=== PATIENT | male | born 1950 | race Caucasian/White ===

== ENCOUNTER → 2016-06-12 | Day surgery (SDC) | payer OTHER ==
[~2016-06-12] MED LIST: Buffered Lidocaine 1% SYR 3ML* 3 ML/SYR SYRINGE INTRADERM ONE; Buffered Lidocaine 1% SYR 3ML* 3 ML/SYR SYRINGE ONE; Dexamethasone IV* 4 MG/ML 1 ML (4 MG) ONE; Famotidine IV* 10 MG/ML 2 ML (20 mg) IV ONE; Famotidine IV* 10 MG/ML 2 ML (20 mg) ONE; Lidocaine 2% PF * 5 ML VIAL ONE; Metoclopramide TAB* 10 MG ONE; Metoclopramide TAB* 10 MG PO ONE; Midazolam* 1 MG/ML 5 ML VIAL (5 MG) ONE; Ondansetron INJ* 2 MG/ML VIAL IV PRN; Ondansetron INJ* 2 MG/ML VIAL ONE; Propofol* 10 MG/ML 20 ML BTL IV PUSH ONE; ceFAZolin 2 GM PREMIX (*) 2 GM/50 ML BAG IVPB ONE; fentaNYL* 50 MCG/ML 2 ML VIAL (100 MCG VIAL) IV PRN; fentaNYL* 50 MCG/ML 2 ML VIAL (100 MCG VIAL) ONE; oxyCODONE/Acetamin 5/325 MG* TAB PO PRN
[2016-06-12 14:07] VITALS: BP 118/72
== END | disposition home or self-care (01) ==
LOC: OREAST 09:32
PROVIDERS: ATTEND Plastic Surgery
DX: G56.01 Carpal tunnel syndrome, right upper limb (principal); M19.90 Unspecified osteoarthritis, unspecified site
CPT/HCPCS: A9270-GY; J0690; J1100; J2250; J2405; J2704; J3010

== ENCOUNTER 2016-07-02 15:56 | Emergency (ER) | payer OTHER ==
[2016-07-02] MEDS ORDERED: Aspirin Low Dose CHEW TAB* 81 MG PO ONE (17:38)
[2016-07-02 17:59] LABS: Hematocrit 46 % (42-52); Hemoglobin 15.7 g/dl (14.0-18.0); Mean Corpuscular HGB Conc 34 g/dl (31-36); Mean Corpuscular Hemoglobin 31 pg (27-31); Mean Corpuscular Volume 91 fL (80-94); Mean Platelet Volume 11 um3 (7.4-10.4); Red Blood Count 5.02 10^6/ul (4.0-5.4); Red Cell Distribution Width 14 % (10.5-15); White Blood Count 6.9 10^3/ul (3.5-10.8)
[2016-07-02 18:12] LABS: Albumin 4.3 g/dL (3.2-5.2); BUN/Creatinine Ratio 19.6 (8-20); Calcium 9.4 mg/dL (8.6-10.3); EGFR African American 106.5 (>60); EGFR Non-African American 82.8 (>60); Globulin 2.6 g/dL (2-4); Magnesium 2.1 mg/dL (1.9-2.7); Total Bilirubin 0.4 mg/dL (0.2-1.0); Total Protein 6.9 g/dL (6.4-8.9)
[2016-07-02 18:14] LABS: Troponin I 0.01 ng/mL (<0.04)
[2016-07-02 18:24] LABS: TSH (Thyroid Stimulating Horm) 1.54 mcIU/mL (0.34-5.60)
--- NOTE | 2016-07-02 18:28 | RAD ---
INDICATION: Chest pain. COMPARISON: Comparison is made with a prior chest x-ray study from October 14, 2005. TECHNIQUE: A portable view of the chest was obtained. FINDINGS: Cardiac and mediastinal contours appear to be within normal limits. The lungs are clear. No pleural effusion is seen. IMPRESSION: NO EVIDENCE FOR ACUTE DISEASE.
[2016-07-02 21:12] VITALS: BP 111/69
--- NOTE | 2016-07-02 21:18 | ED ---
Jorge Camp Billy, scribed for Brooks Sheth MD on 07/02/16 at 1732 . HPI Chest Pain - HPI Summary HPI Summary: Patient is a 66 year-old male coming to [facility] for evaluation of left anterior, non-radiating chest pain starting suddenly at 0300 this morning, waking him up from sleep. The pain spontaneously resolved after 1 hour. He denies any nausea, vomiting, diaphoresis, SOB, or dizziness at that time. However, pain was worse when actively leaning forward. He states he is asymptomatic at this time in the ED. - History of Current Complaint Chief Complaint: EDChestPainROMI Time Seen by Provider: 07/02/16 17:29 Hx Obtained From: Patient Onset/Duration: Started Hours Ago, Still Present Time of Onset: 03:00 Initial Severity: Moderate Current Severity: None Chest Pain Location: Left Anterior Chest Pain Radiates: No Aggravating Factor(s): Position Alleviating Factor(s): Nothing Associated Signs and Symptoms: Positive: Chest Pain. Negative: Dizziness, Shortness of Breath, Diaphoresis, Nausea, Vomiting - Additional Pertinent History Primary Care Physician: [id number] - Allergy/Home Medications Allergies/Adverse Reactions: Allergies Allergy/AdvReac Type Severity Reaction Status Date / Time ENVIRONMENTAL Allergy Congestion, Uncoded 06/12/16 10:24 CHRONIC COUGH PMH/Surg Hx/FS Hx/Imm Hx Endocrine/Hematology History: Denies: Hx Diabetes Cardiovascular History: Denies: Hx Hypertension Respiratory History: Reports: Other Respiratory Problems/Disorders - CONGESTION IN AM GI History: Reports: Hx Irritable Bowel - DAILY FIBER LAXATIVE History: Reports: Other Problems/Disorders - SLIGHTLY ENLARGE PROSTATE Musculoskeletal History: Reports: Hx Arthritis - OSTEOARTHRITIS BILATERAL KNEES ; LEFT TKR Sensory History: Reports: Hx Cataracts - BILAT, Hx Contacts or Glasses - GLASSES Denies: Hx Hearing Aid Opthamlomology History: Reports: Hx Cataracts - BILAT, Hx Contacts or Glasses - GLASSES Neurological History: Reports: Other Neuro Impairments/Disorders - HX OF DIZZINESS AFTER KNEE SURGERY - NONE NOW Psychiatric History: Reports: Hx Anxiety, Hx Depression - Surgical History Surgery Procedure, Year, and Place: 1996 NASAL SURGERY, [facility] [place]. 1998 UMBILICAL HERNIA REPAIR, [facility] [place]. 2013 BILATERAL CATARACT EXTRACTION WITH IOL IMPLANTS, [facility] [place]. 10/2015 LEFT TOTAL KNEE REPLACEMENT, [facility] [place]. 05/26/2016 ANAL POLYP EXCISION, [facility] Hx Anesthesia Reactions: No Infectious Disease History: No Infectious Disease History: Denies: Traveled Outside the [place] in Last 30 Days - Family History Known Family History: Negative: Cardiac Disease, Hypertension, Diabetes - Social History Alcohol Use: Rare Alcohol Amount: 1-2 X MONTH Substance Use Type: Reports: None Smoking Status (MU): Never Smoked Tobacco Review of Systems Negative: Skin Diaphoresis Positive: Chest Pain Negative: Shortness Of Breath Negative: Vomiting, Nausea All Other Systems Reviewed And Are Negative: Yes Physical Exam - Summary Physical Exam Summary: VITAL SIGNS: Reviewed. GENERAL: Patient is a well developed and nourished male who is lying comfortable in the stretcher. Patient is not in any acute respiratory distress. HEAD AND FACE: No signs of trauma. No ecchymosis, hematomas or skull depressions. No sinus tenderness. EYES: PERRLA, EOMI x 2, No injected conjunctiva, no nystagmus. EARS: Hearing grossly intact. Ear canals and tympanic membranes are within normal limits. MOUTH: Oropharynx within normal limits. NECK: Supple, trachea is midline, no adenopathy, no JVD, no carotid bruit, no c- spine tenderness, neck with full ROM. CHEST: Symmetric, no tenderness at palpation LUNGS: Clear to auscultation bilaterally. No wheezing or crackles. CVS: Regular rate and rhythm, S1 and S2 present, no murmurs or gallops appreciated. ABDOMEN: Soft, non-tender. No signs of distention. No rebound no guarding, and no masses palpated. Bowel sounds are normal. EXTREMITIES: FROM in all major joints, no edema, no cyanosis or clubbing. NEURO: Alert and oriented x 3. No acute neurological deficits. Speech is normal and follows commands. SKIN: Dry and warm Triage Information Reviewed: Yes Vital Signs On Initial Exam: Initial Vitals Temp Pulse Resp BP Pulse Ox 98.9 F 100 16 161/84 97 07/02/16 15:58 07/02/16 15:58 07/02/16 15:58 07/02/16 15:58 07/02/16 15:58 Vital Signs Reviewed: Yes Diagnostics - Vital Signs Vital Signs Temp Pulse Resp BP Pulse Ox 07/02/16 16:56 99.4 F 93 16 136/77 97 07/02/16 15:58 98.9 F 100 16 161/84 97 - Laboratory Lab Results: Lab Results 07/02/16 07/02/16 07/02/16 Range/Units 17:26 17:26 17:26 WBC 6.9 (3.5-10.8) 10^3/ul RBC 5.02 (4.0-5.4) 10^6/ul Hgb 15.7 (14.0-18.0) g/dl Hct 46 (42-52) % MCV 91 (80-94) fL MCH 31 (27-31) pg MCHC 34 (31-36) g/dl RDW 14 (10.5-15) % Plt Count 178 (150-450) 10^3/ul MPV 11 H (7.4-10.4) um3 Neut % (Auto) 70.0 (38-83) % Lymph % (Auto) 18.7 L (25-47) % [place] % (Auto) 8.2 (1-9) % Eos % (Auto) 2.4 (0-6) % Baso % (Auto) 0.7 (0-2) % Absolute Neuts (auto) 4.9 (1.5-7.7) 10^3/ul Absolute Lymphs (auto) 1.3 (1.0-4.8) 10^3/ul Absolute Monos (auto) 0.6 (0-0.8) 10^3/ul Absolute Eos (auto) 0.2 (0-0.6) 10^3/ul Absolute Basos (auto) 0 (0-0.2) 10^3/ul Absolute Nucleated RBC 0.01 10^3/ul Nucleated RBC % 0.1 Sodium 138 (133-145) mmol/L Potassium 4.0 (3.5-5.0) mmol/L Chloride 107 (101-111) mmol/L Carbon Dioxide 25 (22-32) mmol/L Anion Gap 6 (2-11) mmol/L BUN 18 (6-24) mg/dL Creatinine 0.92 (0.67-1.17) mg/dL Est GFR ( Amer) 106.5 (>60) Est GFR (Non-Af Amer) 82.8 (>60) BUN/Creatinine Ratio 19.6 (8-20) Glucose 88 (70-100) mg/dL Lactic Acid 0.6 (0.5-2.0) mmol/L Calcium 9.4 (8.6-10.3) mg/dL Magnesium 2.1 (1.9-2.7) mg/dL Total Bilirubin 0.40 (0.2-1.0) mg/dL AST 21 (13-39) U/L ALT 19 (7-52) U/L Alkaline Phosphatase 67 (34-104) U/L Total Creatine Kinase 56 (10-223) U/L CK-MB (CK-2) 2.4 (0.6-6.3) ng/mL Troponin I 0.01 (<0.04) ng/mL B-Natriuretic Peptide ( - 100) pg/mL Total Protein 6.9 (6.4-8.9) g/dL Albumin 4.3 (3.2-5.2) g/dL Globulin 2.6 (2-4) g/dL Albumin/Globulin Ratio 1.7 (1-3) TSH 1.54 (0.34-5.60) mcIU/mL 07/02/16 Range/Units 17:26 WBC (3.5-10.8) 10^3/ul RBC (4.0-5.4) 10^6/ul Hgb (14.0-18.0) g/dl Hct (42-52) % MCV (80-94) fL MCH (27-31) pg MCHC (31-36) g/dl RDW (10.5-15) % Plt Count (150-450) 10^3/ul MPV (7.4-10.4) um3 Neut % (Auto) (38-83) % Lymph % (Auto) (25-47) % [place] % (Auto) (1-9) % Eos % (Auto) (0-6) % Baso % (Auto) (0-2) % Absolute Neuts (auto) (1.5-7.7) 10^3/ul Absolute Lymphs (auto) (1.0-4.8) 10^3/ul Absolute Monos (auto) (0-0.8) 10^3/ul Absolute Eos (auto) (0-0.6) 10^3/ul Absolute Basos (auto) (0-0.2) 10^3/ul Absolute Nucleated RBC 10^3/ul Nucleated RBC % Sodium (133-145) mmol/L Potassium (3.5-5.0) mmol/L Chloride (101-111) mmol/L Carbon Dioxide (22-32) mmol/L Anion Gap (2-11) mmol/L BUN (6-24) mg/dL Creatinine (0.67-1.17) mg/dL Est GFR ( Amer) (>60) Est GFR (Non-Af Amer) (>60) BUN/Creatinine Ratio (8-20) Glucose (70-100) mg/dL Lactic Acid (0.5-2.0) mmol/L Calcium (8.6-10.3) mg/dL Magnesium (1.9-2.7) mg/dL Total Bilirubin (0.2-1.0) mg/dL AST (13-39) U/L ALT (7-52) U/L Alkaline Phosphatase (34-104) U/L Total Creatine Kinase (10-223) U/L CK-MB (CK-2) (0.6-6.3) ng/mL Troponin I (<0.04) ng/mL B-Natriuretic Peptide 21 ( - 100) pg/mL Total Protein (6.4-8.9) g/dL Albumin (3.2-5.2) g/dL Globulin (2-4) g/dL Albumin/Globulin Ratio (1-3) TSH (0.34-5.60) mcIU/mL Result Diagrams: 07/02/16 17:26 07/02/16 17:26 Lab Statement: Any lab studies that have been ordered have been reviewed, and results considered in the medical decision making process. - Radiology CXR Xray Interpretation: No Acute Changes Radiology Interpretation Completed By: Radiologist - EKG 1604 EKG Interpretation: NSR 90 bpm, no ST elevation Chest Pain Course/Dx - Course Assessment/Plan: Patient is a 66 year-old male coming to [facility] for evaluation of left anterior, non-radiating chest pain starting suddenly at 0300 this morning, waking him up from sleep. The pain spontaneously resolved after 1 hour. He denies any nausea, vomiting, diaphoresis, SOB, or dizziness at that time. However, pain was worse when actively leaning forward. He states he is asymptomatic at this time in the ED. Bloodwork WNL. Trop #1 is 0.01, trop #2 is 0.00. EKG shows no ST elevations. CXR shows no evidence for acute disease. In the ER course, the patient continues to be asypmtomatic, therefore I discussed my physical exam findings with the patient and the need to follow up with PCP. Because the patient has no significant comorbidities and no family history of cardiovascular disease the patient will be discharged home with follow up of PMD. I discussed all the findings and test results with the patient. Patient was instructed to return to the emergency room immediately if any of the symptoms return or worsens. Patient understands and agrees. Plan of care was discussed with the patient and patient understands and agrees. All questions were answered at patient satisfaction. There were no further complaints or concerns. PE before discharge: CVS: S1 and S2 present. No murmurs appreciated. Abdominal exam before discharge: Soft, non-tender. No signs of distention. No rebound no guarding, and no masses palpated. Bowel sounds are normal. Patient is alert and oriented x 3. Patient is hemodynamically stable. - Chest Pain Differential Diagnosis/HQI/PQRI: ACS, Angina, CHF, Chest Wall, GI Disease, Lower Respiratory Infection - Diagnoses Provider Diagnoses: Chest pain Discharge - Discharge Plan Condition: Stable Disposition: HOME Patient Education Materials: Chest Pain (ED) Referrals: Isis Chacon MD [Primary Care Provider] - The documentation as recorded by the Jorge cardenas Billy accurately reflects the service I personally performed and the decisions made by me, Brooks Sheth MD.
== END 2016-07-02 21:27 | disposition home or self-care (01) ==
LOC: ED 15:56
DX: R07.89 Other chest pain (principal)
CPT/HCPCS: 36415; 71010; 80053; 82550; 82553; 83605; 83735; 83880; 84443; 84484; 85025; 93005; 99283; A9270-GY

== ENCOUNTER → 2016-09-04 10:15 | Day surgery (SDC) | payer OTHER ==
[~2016-09-04 10:15] MED LIST changes: +Acetaminophen TAB* 325 MG ONE; -Buffered Lidocaine 1% SYR 3ML* 3 ML/SYR SYRINGE INTRADERM ONE; -Buffered Lidocaine 1% SYR 3ML* 3 ML/SYR SYRINGE ONE; +Buffered Lidocaine 1% SYRIN* 3 ML/SYR SYRINGE INTRADERM ONE; +Bupivacaine 0.25% SDV* 30 ML ONE; -Dexamethasone IV* 4 MG/ML 1 ML (4 MG) ONE; -Famotidine IV* 10 MG/ML 2 ML (20 mg) IV ONE; -Famotidine IV* 10 MG/ML 2 ML (20 mg) ONE; -Lidocaine 2% PF * 5 ML VIAL ONE; -Metoclopramide TAB* 10 MG ONE; -Metoclopramide TAB* 10 MG PO ONE; +Midazolam* 1 MG/ML 2 ML VIAL (2 MG) ONE; -Midazolam* 1 MG/ML 5 ML VIAL (5 MG) ONE; -Ondansetron INJ* 2 MG/ML VIAL IV PRN; -Ondansetron INJ* 2 MG/ML VIAL ONE; -ceFAZolin 2 GM PREMIX (*) 2 GM/50 ML BAG IVPB ONE; +ceFAZolin 2 GM PREMIX(*) 2 GM/50 ML BAG IVPB ONE; -fentaNYL* 50 MCG/ML 2 ML VIAL (100 MCG VIAL) IV PRN; -oxyCODONE/Acetamin 5/325 MG* TAB PO PRN
[2016-09-04 16:00] VITALS: BP 138/87
== END | disposition home or self-care (01) ==
LOC: OREAST 10:15
PROVIDERS: ATTEND Plastic Surgery
DX: G56.02 Carpal tunnel syndrome, left upper limb (principal); M19.90 Unspecified osteoarthritis, unspecified site; K21.9 Gastro-esophageal reflux disease without esophagitis; K58.9 Irritable bowel syndrome, unspecified
CPT/HCPCS: A9270-GY; J0690; J2250; J2704; J3010

== ENCOUNTER 2017-04-07 10:46 | Inpatient (IN) | payer OTHER ==
--- NOTE | 2017-03-26 19:30 | HP ---
HISTORY AND PHYSICAL: DATE OF ADMISSION/SURGERY: 04/07/17 DATE OF OFFICE VISIT: 03/25/17 SURGEON: Alfreda Moreno MD* (dictated by ELVIE Cuevas). PROCEDURE: Right total hip arthroplasty. CHIEF COMPLAINT: Right hip pain. HISTORY OF PRESENT ILLNESS: Mr. De Oliveira is a 66-year-old gentleman with complaints of right hip pain secondary to advanced osteoarthritis. He has failed conservative management and has elected to proceed with a right total hip arthroplasty, which is scheduled for 04/07/[address] Moreno. PAST MEDICAL HISTORY: BPH, GERD, and sleep apnea. PAST SURGICAL HISTORY: Left total knee arthroplasty, bilateral carpal tunnel release, tooth extraction, and anal polyp removal. CURRENT MEDICATIONS: 1. Daily multivitamin. 2. Milk of magnesia. 3. Fish oil. 4. Methylcellulose. 5. Glucosamine/chondroitin. 6. Tylenol Extra Strength. 7. Celebrex 100 mg twice daily. ALLERGIES: No known drug allergies. FAMILY HISTORY: Denies. SOCIAL HISTORY: He is a 66-year-old gentleman. Denies use of tobacco or illicit drugs. REVIEW OF SYSTEMS: A complete 14-point review of systems was reviewed with the patient; it was all negative or noncontributory. PHYSICAL EXAMINATION GENERAL: He is well-developed, well-nourished, in no acute distress. VITAL SIGNS: He stands 5 feet 6 inches tall, weighs 200 pounds, his blood pressure is 138/92, his heart rate is 80. HEENT: Normocephalic, atraumatic. NECK: Supple. No palpable lymph nodes. PULMONARY: Lungs are clear to auscultation bilaterally. CARDIO: Regular rate and rhythm. Strong S1, S2. ABDOMEN: Soft, nontender, and nondistended. NEUROLOGICAL: Alert and oriented x3. Cranial nerves II through XII are intact. MUSCULOSKELETAL: Right lower extremity, the skin is intact. There are no open wounds or abrasions. He walks with an antalgic-type gait favoring his right hip. He has decreased internal and external rotation of his right hip. He has 2 + dorsalis pedis pulse, has intact sensation. His lower extremity muscle group strengths are intact at 5/5. ASSESSMENT AND PLAN: Mr. De Oliveira is a 66-year-old gentleman with complaints of right hip pain secondary to advanced osteoarthritis. He has failed conservative management and has elected to proceed with a right total hip arthroplasty, which is scheduled for 04/07/[address] Moreno discussed the risks and benefits of the surgery and all of his questions were answered. Coumadin, Colace, and Percocet were sent to his pharmacy for postoperative pain control and DVT prophylaxis. He will see with Dr. Moreno back in 2 weeks after the surgery. ELVIE CUEVAS [id number]/[facility] #: [id number] MTDShayan
[~2017-04-07 10:46] MED LIST changes: -Acetaminophen TAB* 325 MG ONE; +Buffered Lidocaine 0.9% SYRIN* 5 ML/SYR SYRINGE INTRADERM ONE; -Buffered Lidocaine 1% SYRIN* 3 ML/SYR SYRINGE INTRADERM ONE; -Bupivacaine 0.25% SDV* 30 ML ONE; +Dexamethasone TAB* 4 MG PO ONE; +Famotidine IV* 10 MG/ML 2 ML (20 mg) IV ONE; -Midazolam* 1 MG/ML 2 ML VIAL (2 MG) ONE; -Propofol* 10 MG/ML 20 ML BTL IV PUSH ONE; -ceFAZolin 2 GM PREMIX(*) 2 GM/50 ML BAG IVPB ONE; -fentaNYL* 50 MCG/ML 2 ML VIAL (100 MCG VIAL) ONE
[2017-04-07] MEDS ORDERED: Dexamethasone TAB* 4 MG ONE (10:53)
[2017-04-07] MEDS ORDERED: Famotidine IV* 10 MG/ML 2 ML (20 mg) ONE (10:53)
[2017-04-07] MEDS ORDERED: ceFAZolin 2 GM PREMIX (*) 2 GM/50 ML BAG IVPB ONE (10:54)
[2017-04-07] MEDS ORDERED: Buffered Lidocaine 0.9% SYRIN* 5 ML/SYR SYRINGE ONE (10:54)
[2017-04-07] MEDS ORDERED: Midazolam* 1 MG/ML 5 ML VIAL (5 MG) ONE ×2 (13:39→15:42)
[2017-04-07] MEDS ORDERED: Propofol* 10 MG/ML 20 ML BTL IV PUSH ONE (13:39)
[2017-04-07] MEDS ORDERED: Ondansetron INJ* 2 MG/ML VIAL ONE (13:39)
[2017-04-07] MEDS ORDERED: Bupivacaine 0.5% SDV PF* 30 ML VIAL ONE (13:39)
[2017-04-07] MEDS ORDERED: Morphine PF AMP (0.5MG/ML)* 5 MG/10 ML AMP ONE (13:40)
[2017-04-07] MEDS ORDERED: KETAMINE HCL* 50 MG/ML 10 ML VIAL ONE (13:40)
[2017-04-07] MEDS ORDERED: Bisacodyl SUPP* 10 MG SUPP PR PRN (15:50)
[2017-04-07] MEDS ORDERED: Acetaminophen TAB* 325 MG PO PRN (15:50)
[2017-04-07] MEDS ORDERED: Polyethylene Glycol 3350* 17 GM PACKET PO PRN (15:50)
[2017-04-07] MEDS ORDERED: DiMENhydriNATE IV* 50 MG/ML VIAL IV PUSH PRN (15:59)
[2017-04-07] MEDS ORDERED: Ondansetron INJ* 2 MG/ML VIAL IV PRN (15:59)
[2017-04-07] MEDS ORDERED: Nalbuphine* 20 MG/ML 1 ML VIAL IV PRN ×2 (15:59)
[2017-04-07] MEDS ORDERED: Naloxone* 0.4 MG/ML 1 ML VIAL IV PRN (15:59)
[2017-04-07] MEDS ORDERED: oxyCODONE/Acetamin 5/325 MG* TAB PO PRN ×2 (15:59→20:18)
[2017-04-07] MEDS ORDERED: Scopolamine 1.5 mg* PATCH TRANSDERM SCH (16:00)
[2017-04-07] MEDS ORDERED: Ropivacaine* 300 MG in NS 0.9% 250 ML* 240 ML EPIDURAL SCH (16:00)
--- NOTE | 2017-04-07 17:32 | RAD ---
INDICATION: Right hip total replacement surgery. COMPARISON: Comparison is made with a prior x-ray study of the right hip from January 23, 2017. TECHNIQUE: An AP view of the pelvis was obtained in the operating room. FINDINGS: The patient is undergoing a total right hip replacement surgery. The acetabular prostheses is in place. There is a femoral prostheses template in place. IMPRESSION: INTRAOPERATIVE CONTROL FILMS.
--- NOTE | 2017-04-07 19:15 | RAD ---
INDICATION: Status post total right hip replacement surgery. COMPARISON: Comparison is made with a prior x-ray study of the right hip from January 23, 2017. TECHNIQUE: AP and lateral portable films of the right hip were obtained. FINDINGS: The patient is status post total right hip replacement surgery. The bones and prostheses are in normal alignment. There is a small amount of air within the soft tissues consistent with the patient's recent surgery. IMPRESSION: STATUS POST TOTAL RIGHT HIP REPLACEMENT SURGERY.
--- NOTE | 2017-04-07 19:16 | RAD ---
INDICATION: Status post total right hip replacement surgery. COMPARISON: Comparison is made with a prior x-ray study of the right hip from January 23, 2017. TECHNIQUE: An AP view of the pelvis was obtained. FINDINGS: The patient is status post total right hip replacement surgery. The bones and prostheses are in normal alignment. Incidental note is made of mild osteoarthritic change in the left hip. IMPRESSION: STATUS POST TOTAL RIGHT HIP REPLACEMENT SURGERY.
[2017-04-07] MEDS ORDERED: Warfarin TAB(*) 6 MG PO ONE (21:00)
[2017-04-07] MEDS: Docusate CAP* 100 MG PO SCH (22:05)
[2017-04-07] MEDS: ceFAZolin 1 GM VIAL(*) 1 GM in NS 0.9% 50 ML* 50 ML IVPB SCH (23:57)
[2017-04-08] MEDS: Magnesium Hydroxide LIQ* 30 ML UDC PO PRN ×2 (05:16→21:38)
[2017-04-08] MEDS ORDERED: Ondansetron TAB* 4 MG PO PRN (06:00)
[2017-04-08] MEDS ORDERED: Morphine INJ* 2 MG/ML 1 ML SYRINGE (TWO MG - NEW SYRINGE VERSION) IV PRN (06:00)
[2017-04-08] MEDS ORDERED: Ondansetron INJ* 2 MG/ML VIAL IV PRN (06:00)
[2017-04-08] MEDS ORDERED: diPHENhydraMINE IV* 50 MG/ML 1 ml VIAL (BENADRYL) IV PRN (06:00)
[2017-04-08 06:53] LABS: Hematocrit 36 % (42-52); Hemoglobin 12.7 g/dl (14.0-18.0)
[2017-04-08] MEDS ORDERED: oxyCODONE/Acetamin 5/325 MG* TAB PO PRN (07:00)
[2017-04-08] MEDS ORDERED: oxyCODONE TAB* 5 MG TAB PO PRN (07:00)
[2017-04-08 07:12] LABS: BUN/Creatinine Ratio 20.5 (8-20); Calcium 8.6 mg/dL (8.6-10.3); EGFR African American 119.6 (>60); Potassium 3.9 mmol/L (3.5-5.0)
--- NOTE | 2017-04-08 08:26 | PN ---
Progress Note - Progress Note Date of Service: 04/08/17 SOAP: Subjective: []Patient seen at bedside. Pain is well controlled, reported as 5. Gallegos was removed this morning with no urination yet and no BM yet. Denies chest pain, shortness of breath, dizziness, nausea, fever, chills and RLE numbness. Objective: [] Vital Signs Temp 97.7 F 04/08/17 03:34 Pulse 96 04/08/17 03:34 Resp 18 04/08/17 05:16 BP 110/76 04/08/17 03:34 Pulse Ox 99 04/08/17 03:34 Intake & Output 04/07/17 04/08/17 04/08/17 18:59 06:59 18:59 Intake Total 1450 1194 Output Total 575 775 Balance 875 419 Weight 201 lb 9.6 oz Intake: IV Fluids 1450 1194 ABX - CEFAZOLIN 55 LR 1400 1139 NS 50ML, Cefazolin 2G 50 Output: Gallegos 575 775 Other: # Bowel Movements 0 Laboratory Last Values Hgb 12.7 g/dl (14.0-18.0) L 04/08/17 05:56 Hct 36 % (42-52) L 04/08/17 05:56 INR (Anticoag Therapy) 1.07 (0.89-1.11) 04/08/17 05:56 Sodium 133 mmol/L (133-145) 04/08/17 05:56 Potassium 3.9 mmol/L (3.5-5.0) 04/08/17 05:56 Chloride 101 mmol/L (101-111) 04/08/17 05:56 Carbon Dioxide 27 mmol/L (22-32) 04/08/17 05:56 Anion Gap 5 mmol/L (2-11) 04/08/17 05:56 BUN 17 mg/dL (6-24) 04/08/17 05:56 Creatinine 0.83 mg/dL (0.67-1.17) 04/08/17 05:56 Est GFR ( Amer) 119.6 (>60) 04/08/17 05:56 Est GFR (Non-Af Amer) 93.0 (>60) 04/08/17 05:56 BUN/Creatinine Ratio 20.5 (8-20) H 04/08/17 05:56 Glucose 134 mg/dL (70-100) H 04/08/17 05:56 Calcium 8.6 mg/dL (8.6-10.3) 04/08/17 05:56 General: Calm, cooperative, well appearing in no acute distress RLE: Dressing is clean, dry and intact with no surrounding erythema Bilateral lower extremities: Calves are supple and nontender without erythema, edema or palpable cords. DP and PT pulses 2+ and symmetric. DF/PF intact. Sensation is intact to light tough throughout bilateral lower extremities. Assessment: []POD 1 s/p Right total hip arthroplasty 04/07, Dr Moreno Plan: []WBAT PT/OT Pain control with percocet Lovenox and Coumadin. Coumadin 8 mg today Ensure aggressive BM management due to hx post-op constipation
[2017-04-08] MEDS ORDERED: NS 0.9% 50 ML* 50 ML ONE (08:33)
[2017-04-08] MEDS: Tamsulosin CAP* 0.4 MG PO SCH (08:35)
[2017-04-08] MEDS: ceFAZolin 1 GM VIAL(*) 1 GM in NS 0.9% 50 ML* 50 ML IVPB SCH ×2 (08:35→17:07)
[2017-04-08] MEDS: Docusate CAP* 100 MG PO SCH ×2 (08:35→21:38)
--- NOTE | 2017-04-08 09:51 | OP ---
DATE OF OPERATION: 04/07/17 - ROOM #341 DATE OF : 54 SURGEON: Alfreda Moreno MD. STEM FRAZER: ELVIE Cao. Ms. Ray did help throughout the procedure with preparation of the leg, wound retraction, manipulation of the hip and wound closure. ANESTHESIOLOGIST: Dr. Sunshine. ANESTHESIA: Spinal epidural. PRE-OP DIAGNOSIS: Severe end-stage osteoarthritis of the right hip joint. POST-OP DIAGNOSIS: Severe end-stage osteoarthritis of the right hip joint. OPERATIVE PROCEDURE: Right total hip arthroplasty. COMPLICATIONS: None. SPECIMEN: Femoral head and acetabular reaming sent to Pathology. ESTIMATED BLOOD LOSS: 500 cc. HARDWARE USED: Uncemented Milroy total hip hardware. For the cup, a Tritanium cluster hole shell 56E, a single 20 mm and a single 25 mm cancellous bone screw used. For the insert a polyethylene Trident X3 0-degree, 36E. For the stem, an Accolade TMZF size 2.5 with 132 degree neck. For the head, a Biolox delta ceramic V40 femoral head 36+2.5. BRIEF HISTORY/INDICATIONS: Mr. De Oliveira is a 67-year-old gentleman, who developed severe pain in the right hip over the last 6 months. Radiographs showed bone on bone arthritis, which was quite severe. The patient failed conservative treatment with anti-inflammatories, pain medication, physical therapy, and ambulatory assistive devices. The pain was extreme and he wished to proceed with right total hip arthroplasty. Informed consent was obtained for the patient. He understood the risks of the procedure included, but were not limited to bleeding, infection, damage to nearby structures, continued pain, need for further surgery, intraoperative fracture, nerve palsy, hardware failure or loosening, dislocation, leg length discrepancy, stroke, heart attack, blood clot, and . He wished to proceed. INTRAOPERATIVE FINDINGS: Intraoperatively, the patient is noted to have severe end- stage arthritis with complete loss of cartilage in the acetabulum and femoral head. He has several intra-articular loose bodies, which ranged in size from 0.25 cm in diameter to 1 cm in diameter. DESCRIPTION OF PROCEDURE: Mr. De Oliveira was identified in the preanesthesia unit. His right lower extremity was marked as the correct operative side. Informed consent was signed and placed in the chart. The patient was taken to the operating room and placed under spinal anesthesia. A Gallegos catheter was placed. The patient was placed in the left lateral decubitus position on the pegboard with all bony prominences well padded. Right lower extremity was prepped and draped in the usual sterile fashion. Preop time-out was made to correctly identify the patient's side and site. Appropriate perioperative antibiotics were given within 1 hour of incision. A 12 cm posterior hip incision was made with a #10 blade and carried down to the lateral fascial layer. The lateral fascial layer was then incised in line with the skin incision. Charnley retractor was placed. The piriformis and conjoined tendons were identified and elevated off the posterolateral femur using electrocautery. These were tagged with #5 Ethibond. Next, electrocautery was used to make a posterolateral capsular flap and this was also tagged with #5 Ethibond. The hip was carefully dislocated. Lesser troch to center of the femoral head measured 55 mm. Oscillating saw was used to make the appropriate femoral neck cut. The femoral head was sent to Pathology. The femur was carefully retracted anteriorly. After appropriate placement of retractors, the acetabulum was easily visualized. A long-handled knife was used to sharply remove any remaining labrum from the acetabular rim. Acetabulum had complete loss of cartilage and significant subchondral sclerosis. The acetabulum was sequentially reamed up to a size 55. Size 55 reamer established subchondral bleeding bone bed that was acceptable. A 55 trial had excellent fit and stability. Final implant chosen with a Tritanium 56E cluster hole shell. This was impacted into the acetabulum without difficulty. The cup was stable with satisfactory abduction angle and anteversion. A single 20-mm screw and a single 25-mm screw were placed in the superoposterior quadrant for extra stability. Tried an X3 polyethylene insert 36E was chosen as the insert. This was impacted into the acetabulum without difficulty. Stability was checked and rechecked and noted to be stable. Attention was next turned to preparation of the femoral canal. Box cut osteotome and canal finder were used to enter the proximal femur. The proximal femur was sequentially broached up to a size 2.5. A 2.5 broach had satisfactory fit and stability. A 132 degree neck trial and a 36 + 0 head trial were chosen. Less troch to center of the femoral head measured 54 mm. The hip was reduced and taken through range of motion. The hip was stable in all positions. There was good soft tissue tension and appropriate leg lengths. The hip was carefully dislocated. All trials were carefully removed. The hip was copiously irrigated with sterile saline. Final femoral implant chosen was an Accolade TMZF size 2.5 with a 132 degree neck. Final head chosen was a Biolox delta ceramic V40 femoral head 30+2.5. The lesser troch to the center of the femoral head measured 55 mm. The hip was reduced and taken through range of motion. The hip was stable in all positions. There was good soft tissue tension and appropriate leg lengths. The hip was copiously irrigated with sterile saline once again. Previously tagged capsule and tendons were reapproximated to the posterolateral femur through two trochanteric drill holes. The lateral fascia; incision was closed using interrupted #1 Vicryl. The rest of the incision was closed in a layered fashion using 0 and 2-0 Vicryl. Skin was closed using running 3-0 Monocryl and Dermabond. Sterile Adaptic, 4x4's and paper tape were used to cover the incision. The patient's anesthesia was reversed without difficulty. He was taken to the PACU in stable condition. Intended weight-bearing will be weightbearing as tolerated. Intended DVT prophylaxis will be Coumadin with a Lovenox bridge. [id number]/[facility] #: [id number] DIGNA
[2017-04-08] MEDS: oxyCODONE/Acetamin 5/325 MG* TAB PO PRN ×3 (10:09→21:38)
[2017-04-08] MEDS ORDERED: Warfarin TAB(*) 4 MG PO ONE (17:00)
[2017-04-08] MEDS: Enoxaparin(*) 40 MG/0.4 ML SYR SUBCUT SCH (17:04)
[2017-04-09 07:01] LABS: Hematocrit 32 % (42-52); Hemoglobin 11.3 g/dl (14.0-18.0)
[2017-04-09] MEDS: Tamsulosin CAP* 0.4 MG PO SCH (07:38)
[2017-04-09] MEDS: Docusate CAP* 100 MG PO SCH ×2 (07:38→20:48)
[2017-04-09] MEDS: oxyCODONE/Acetamin 5/325 MG* TAB PO PRN ×3 (07:38→16:35)
--- NOTE | 2017-04-09 08:53 | PN ---
Progress Note - Progress Note Date of Service: 04/09/17 SOAP: Subjective: []Patient seen OOB in chair. He is feeling well with no acute complaints, pain is well controlled. He has been urinating without difficulty and has produced a BM. No chest pain, shortness of breath, nausea, vomiting, leg numbness, fever or chills. Objective: [] Vital Signs Temp 98.6 F 04/09/17 03:33 Pulse 104 04/09/17 03:33 Resp 16 04/09/17 07:38 BP 143/71 04/09/17 03:33 Pulse Ox 96 04/09/17 03:33 Intake & Output 04/08/17 04/09/17 04/09/17 18:59 06:59 18:59 Intake Total 1585 150 Output Total 275 850 Balance 1310 -700 Intake: IVPB 785 ABX - CEFAZOLIN 62 LR 723 Oral 800 150 Output: Urine 275 850 Laboratory Last Values Hgb 11.3 g/dl (14.0-18.0) L 04/09/17 06:03 Hct 32 % (42-52) L 04/09/17 06:03 INR (Anticoag Therapy) 1.25 (0.89-1.11) H 04/09/17 06:03 Sodium 133 mmol/L (133-145) 04/08/17 05:56 Potassium 3.9 mmol/L (3.5-5.0) 04/08/17 05:56 Chloride 101 mmol/L (101-111) 04/08/17 05:56 Carbon Dioxide 27 mmol/L (22-32) 04/08/17 05:56 Anion Gap 5 mmol/L (2-11) 04/08/17 05:56 BUN 17 mg/dL (6-24) 04/08/17 05:56 Creatinine 0.83 mg/dL (0.67-1.17) 04/08/17 05:56 Est GFR ( Amer) 119.6 (>60) 04/08/17 05:56 Est GFR (Non-Af Amer) 93.0 (>60) 04/08/17 05:56 BUN/Creatinine Ratio 20.5 (8-20) H 04/08/17 05:56 Glucose 134 mg/dL (70-100) H 04/08/17 05:56 Calcium 8.6 mg/dL (8.6-10.3) 04/08/17 05:56 General: Well appearing, no acute distress. RLE: Dressing is CDI after being changed this morning by Dr. Moreno with no concern for infection and no complication Bilateral lower extremities: Calves supple and nontender without erythema, edema or palpable cords. Negative chun's sign. DP/PT pulses 2+ and symmetric. Sensation intact distally. DF/PF intact. Assessment: []s/p Right total hip arthroplasty 04/07, Dr Moreno Plan: []WBAT PT/OT Lovenox, Coumadin 8 mg today Plan dc 04/10/17
[2017-04-09] MEDS: Enoxaparin(*) 40 MG/0.4 ML SYR SUBCUT SCH (16:34)
[2017-04-09] MEDS ORDERED: Warfarin TAB(*) 4 MG PO ONE (17:00)
[2017-04-10 06:42] LABS: Hematocrit 31 % (42-52); Hemoglobin 11.1 g/dl (14.0-18.0)
--- NOTE | 2017-04-10 07:33 | PN ---
Progress Note - Progress Note Date of Service: 04/10/17 SOAP: Subjective: Pt. is alert, denies pain, has had a BM. Has had tachycardia ON. Objective: RLE - thigh and calf soft, distlally nvi. Vital Signs: Temp Pulse Resp BP Pulse Ox 98.0 F 115 18 150/92 96 04/10/17 03:37 04/10/17 03:37 04/10/17 03:37 04/10/17 03:37 04/10/17 03:37 Laboratory Results - last 24 hr 04/10/17 04/10/17 06:29 06:29 Hgb 11.1 L Hct 31 L INR (Anticoag Therapy) 1.56 H Assessment: 67 yo M pod 1 s/p RTHA Plan: wbat rle with post hip precautions will check ekg this am - if normal d/c to home today Pt is asymtomatic Home with VNS Lovenox today, home on 6 mg coumadin
[2017-04-10 08:09] VITALS: BP 141/70
[2017-04-10] MEDS: Enoxaparin(*) 40 MG/0.4 ML SYR SUBCUT SCH ×2 (08:16→14:11)
[2017-04-10] MEDS: Docusate CAP* 100 MG PO SCH (08:17)
[2017-04-10] MEDS: Tamsulosin CAP* 0.4 MG PO SCH (08:17)
[2017-04-10 12:40] LABS: BUN/Creatinine Ratio 22.9 (8-20); Calcium 8.6 mg/dL (8.6-10.3); EGFR African American 145.6 (>60); EGFR Non-African American 113.2 (>60); Magnesium 2.1 mg/dL (1.9-2.7); Potassium 3.7 mmol/L (3.5-5.0)
--- NOTE | 2017-04-10 12:51 | CONS ---
CC: Dr. Chacon; Dr. Moreno * CONSULTATION REPORT: DATE OF CONSULT: 04/10/17 PRIMARY CARE PROVIDER: Dr. Chacon. ATTENDING PHYSICIAN WHILE IN THE HOSPITAL: Dr. Ashley Graham (report dictated by Meir Dhillon NP). REQUESTING PHYSICIAN FOR CONSULT: Dr. Moreno. REASON FOR MEDICAL CONSULTATION: 1. Evaluation of abnormal EKG. 2. Tachycardia. HISTORY OF PRESENTING ILLNESS: Mr. De Oliveira is a 67-year-old male patient who for some time has been dealing with right hip pain. He underwent right total hip arthroplasty on the with Dr. Moreno and her team. He was noted that last night until this morning, he was tachycardic. He actually has been running mildly tachycardic throughout the and the , and then last night he was in the 110s and 120s. An EKG was obtained today and it showed a possible left anterior fascicular block. We were asked to evaluate in consult the patient. In discussing with him and reviewing his records, he says that he has been told in the past he has had a fast heart rate. In addition to this as noted on Dr. Chacon's note preoperatively, his pulse was 112. The patient denies having any chest pain, denies any shortness of breath. Says he is feeling well. He is anxious to go home today. He says that he does not feel any chest discomfort. No palpitations. He denies having any abdominal discomfort and he says that he does not feel like he is in much pain and he says the last night was a tough night for him because he was very constipated, he required suppository. He was feeling nauseated. He had a bowel movement this morning and he feels much better. He denies having any again fevers or chills. There has been no reports of dysuria. No vomiting. No cough. He denies having feeling congested or having a sore throat. Because of the concern for tachycardia, we were asked to evaluate. The patient does carry a history of BPH, IBS, GERD, and FLY. PAST MEDICAL HISTORY: Significant for: 1. BPH. 2. GERD. 3. FLY. 4. IBS. PAST SURGICAL HISTORY: 1. He had a right total hip arthroplasty done on the of this month. 2. He had a hernia repair. 3. He had a left total knee replacement. 4. He does have a history of carpal tunnel repair. MEDICATIONS: The home meds according to his preop list include: 1. Flomax 0.4 mg p.o. daily. 2. Fish oil 1000 mg p.o. b.i.d. 3. Milk of mag 2 teaspoons b.i.d. as needed. 4. Fiber 3 capsules p.o. t.i.d. 5. Glucosamine chondroitin 1 capsule p.o. b.i.d. 6. Tylenol 500 mg every 8 hours as needed. 7. He now was prescribed Percocet 2 tablets p.o. every 4 hours as needed for discharge. 8. In addition to this, also now started on warfarin 2 mg p.o. daily. ALLERGIES TO MEDICATIONS: Include no known drug allergies. FAMILY HISTORY: His mother had a history of Alzheimer's. His father had a history of lung cancer. SOCIAL HISTORY: He does not smoke. He does not drink. He does not have a surrogate decision maker at this point. I did encourage him to point one and he will think about that he said. REVIEW OF SYSTEMS: There is no documented fever. He denies having any double vision. There is no rhinorrhea. No sore throat. No thyroid enlargement. He denies having any again chest pain, no orthopnea, no nocturnal dyspnea. There was no abdominal pain, no nausea, no vomiting, no dysuria, no frequency. There was no seizure, no loss of consciousness, no pruritus, and no skin ulcerations with the exception of the postop incision. Review of 14 systems completed, all others negative. PHYSICAL EXAMINATION: Vital Signs: Blood pressure 141/70 with a pulse of 105, respirations 16, O2 sat 98%, temperature 98.5. General: At this time, Mr. De Oliveira is a 67-year-old male patient. He is sitting in the hospital bed. He is well nourished, well developed. He does not appear to be in any acute distress. HEENT: Head: Atraumatic, normocephalic. Eyes: EOMs are intact. Sclerae anicteric, not pale. Neck: Supple. Throat: Oral mucosa appears to be moist. No oropharyngeal erythema. Heart: Sounds S1, S2. He is tachycardic right now at a 110. No murmurs, rubs, or gallops. Lungs: Clear to auscultation bilaterally. No wheezes, rales, or rhonchi. Abdomen: Soft, flat, nontender. Bowel sounds are present. Extremities: Pulses were 2+ throughout. He has got distal CSM checks to the right lower extremity. He has 5/5 strength in the upper extremities. Neurologically, he is awake, alert, and oriented x3. No gross focal deficits. Skin is intact with the exception he has an incision to the right hip, which appears to be intact and no erythema. Neurologically, he is awake, alert, and oriented x3 with no gross focal deficits. Again, skin grossly intact with the exception of the incision. DIAGNOSTIC STUDIES/LAB DATA: The labs today revealed a hemoglobin of 11.1, hematocrit of 31. His INR was 1.56. His chemistries on the were sodium of 133, potassium 3.9, chloride 101, bicarb 27, BUN 17, creatinine 0.83, glucose of 134, calcium of 8.6. He had an EKG obtained today, which shows a sinus tachycardia with a PVC greater than 105. No ST elevations or T-wave inversions. There is a what appears to be a left anterior fascicular block. I reviewed with his previous EKG, appears to be similar with no acute change with the exception of tachycardia is now new. Old medical records were reviewed. ASSESSMENT AND PLAN: Mr. De Oliveira is a 67-year-old male patient coming into the orthopedic services for an elective right total hip. Recommendations at this point are: 1. Status post right total hip replacement. I will defer the management to Dr. Moreno and team. 2. Tachycardia with a left anterior fascicular block. At this point, this looked like preoperatively he was tachycardic according to Dr. Chacon's note at about 112. He has been told that he has fast heart rate in the past. I think minimally we should just check his electrolytes. If those are stable, he could be safely discharged with close followup with Dr. Chacon for the tachycardia. He may need outpatient workup in forms of echo and Holter monitor , but he is asymptomatic currently. He does not have any obvious signs of infection. His H and H has been stable. Remainder of his vital signs have been stable and again he appears to be improving and doing well, so we will continue to follow this. We will get the BNP and hematocrit. If these appears to be stable, then again I would recommend close followup with Dr. Chacon in the outpatient setting and also we will check a TSH. 3. Benign prostatic hypertrophy. Continue meds as prescribed. 4. Gastroesophageal reflux disease. Continue PPI therapy. 5. Obstructive sleep apnea. Continue with CPAP. 6. Irritable bowel syndrome. Continue with his current bowel regimen. 7. DVT prophylaxis. Defer to the primary team. 8. Code status. Full code. 9. Fluids, electrolytes, nutrition. I would recommend regular diet. TIME SPENT: On the consult was 60 minutes, greater than half the time spent face- to-face with the patient obtaining my history and physical, the other half of the time spent going over the plan of care with the patient and implementing the plan of care. I did discuss the plan of care with my attending, Dr. Graham; she is in agreement. MEIR DHILLON, RANDY [id number]/CPS #: [id number] MTDShayan
[2017-04-10 13:02] LABS: TSH (Thyroid Stimulating Horm) 1.67 mcIU/mL (0.34-5.60)
--- NOTE | 2017-04-10 14:51 | DS ---
AMENDED REPORT NOW INCLUDES COSIGNER DESIGNATION - ESIGNED BEFORE ADJUSTMENT DISCHARGE SUMMARY: DATE OF ADMISSION: 04/07/17 DATE OF DISCHARGE: 04/10/17 SURGEON: Alfreda Moreno MD * (DICTATED BY ELVIE CUEVAS) PRINCIPAL DIAGNOSIS: Severe end-stage osteoarthritis of the right hip. DISCHARGE DIAGNOSIS: Severe end-stage osteoarthritis of the right hip. HISTORY OF PRESENT ILLNESS: Mr. De Oliveira is a 67-year-old gentleman with complaints of right hip pain secondary to severe end-stage osteoarthritis. He had failed conservative management and elected to proceed with a right total hip arthroplasty. HOSPITAL COURSE: Mr. De Oliveira is a 67-year-old gentleman. He was admitted electively to the hospital on 04/07/17 and underwent a right total hip arthroplasty. He tolerated the procedure well with no complications. Postoperatively, he was placed on Lovenox and Coumadin for DVT prophylaxis. On postoperative day #1, his H and H was 12.7 and 36; on postop day #2, 11.3 and 32 ; on postoperative day #3, 11 and 31. His INR went from 1.07 on postoperative day #1 to 1.56 on postoperative day #3. He did develop some tachycardia during his stay without complaints of chest pain or shortness of breath. An EKG was ordered and hospital medicine reviewed and there was no significant change when compared to a preop EKG. He was discharged home in stable condition. DISCHARGE MEDICATIONS: 1. Colace 2 to 3 tabs daily. 2. Percocet 5/325 one to two tabs every 4 to 6 hours as needed for pain. 3. Coumadin 2 mg nightly. 4. Flomax 0.4 mg daily. PHYSICAL EXAMINATION UPON DISCHARGE: He is afebrile. His vital signs were stable. His wound was clean and dry and healing well. He was ambulating well. He was able to walk. He is distally neurovascularly intact. DISCHARGE INSTRUCTIONS: He was discharged home. He was given a prescription for Percocet to take as needed for pain as well as Colace. He was given Coumadin. His last INR was 1.56. Dr. Moreno would like him to take 6 mg of Coumadin tonight, 6 mg Thursday night, 4 mg Thursday night. VNS will recheck his INR on [facility]. He will Follow up with Dr. Moreno in 2 weeks. We have asked him to call our office sooner with any questions or concerns. ELVIE CUEVAS [id number]/CPS #: [id number] MTDShayan
[2017-04-10] MEDS ORDERED: Scopolamine PATCH Remove* 1 NOTE MISC PATCH OFF ONE (16:04)
[2017-04-10] MEDS ORDERED: Warfarin TAB(*) 6 MG PO SCH (17:00)
== END 2017-04-10 15:45 | disposition home health service (06) | DRG 470 ==
LOC: AA 10:46 → SSU 19:50
PROVIDERS: ADMIT Orthopaedic Surgery Adult Reconstructive Orthopaedic Surgery; ATTEND Orthopaedic Surgery Adult Reconstructive Orthopaedic Surgery
PROC: 0SR904A Replacement of Right Hip Joint with Ceramic on Polyethylene Synthetic Substitute, Uncemented, Open Approach (ICD-10-PCS; principal; 2017-04-07 13:45)
DX: M16.11 Unilateral primary osteoarthritis, right hip (principal); G47.33 Obstructive sleep apnea (adult) (pediatric); K21.9 Gastro-esophageal reflux disease without esophagitis; N40.0 Benign prostatic hyperplasia without lower urinary tract symptoms; Z96.652 Presence of left artificial knee joint; K58.9 Irritable bowel syndrome, unspecified; I44.4 Left anterior fascicular block; R00.0 Tachycardia, unspecified
CPT/HCPCS: 36415; 72170; 80048; 83735; 84443; 85014; 85018; 85610; 93005; A9270-GY; C1713; C1776; J0690; J1240; J1650; J2250; J2405; J2704; J2795; J8540

== ENCOUNTER 2017-04-12 13:16 | Emergency (ER) | payer OTHER ==
[2017-04-12 14:17] LABS: Hematocrit 34 % (42-52); Mean Corpuscular HGB Conc 35 g/dl (31-36); Mean Corpuscular Hemoglobin 32 pg (27-31); Mean Corpuscular Volume 92 fL (80-94); Mean Platelet Volume 9 um3 (7.4-10.4); Red Blood Count 3.73 10^6/ul (4.0-5.4); Red Cell Distribution Width 13 % (10.5-15); White Blood Count 8.4 10^3/ul (3.5-10.8)
[2017-04-12 14:31] LABS: Albumin 3.5 g/dL (3.2-5.2); BUN/Creatinine Ratio 15.5 (8-20); Calcium 8.6 mg/dL (8.6-10.3); EGFR African American 143.2 (>60); EGFR Non-African American 111.3 (>60); Globulin 2.6 g/dL (2-4); Potassium 3.6 mmol/L (3.5-5.0); Total Bilirubin 0.7 mg/dL (0.2-1.0); Total Protein 6.1 g/dL (6.4-8.9)
--- NOTE | 2017-04-12 15:00 | RAD ---
INDICATION: Pain and swelling. Recent hip surgery. COMPARISON: None TECHNIQUE: Duplex interrogation of the Lowerextremity was performed. FINDINGS: Deep veins: The common femoral, great saphenous, profunda femoris, proximal, mid, and distal deep femoral, popliteal, tibial veins are patent although evaluation of peroneal veins is limited likely related to technical factors. There is normal compressibility, augmentation, and phasic flow. Superficial veins: There are no findings of superficial thrombophlebitis. Popliteal fossa:There is no evidence of a popliteal cyst. Soft tissues:There are no soft tissue abnormalities. IMPRESSION: No evidence of deep venous thrombosis
--- NOTE | 2017-04-12 16:35 | ED ---
Shaka Camp Abhishek, scribed for Juancho Ontiveros on 04/12/17 at 1401 . Lower Extremity - HPI Summary HPI Summary: This patient is a 67 year old M presenting to [facility] with a chief complaint of edema on the RLE and right pedal since two days ago. Patient reports edema s/p surgery (total hip replacement). Pt is on Coumadin. The patient rates the pain 4 /10 in severity. Symptoms aggravated by nothing. Symptoms alleviated by nothing. Patient reports surgical scar on the upper RLE. Patient denies being ambulatory without assistance, CP, SOB, and fevers. - History of Current Complaint Chief Complaint: EDExtremityLower Stated Complaint: RIGHT LEG SWELLING, LEG IS TURING PURPLE Time Seen by Provider: 04/12/17 13:35 Hx Obtained From: Patient Onset of Pain: Days - Since 2 days ago Severity Currently: Mild Pain Intensity: 4 Pain Scale Used: 0-10 Numeric Timing: Constant, Lasting Days - since 2 days ago Associated Signs And Symptoms: Positive: Swelling, Bruising Aggravating Factor(s): Nothing Alleviating Factor(s): Nothing - Allergies/Home Medications Allergies/Adverse Reactions: Allergies Allergy/AdvReac Type Severity Reaction Status Date / Time No Known Allergies Allergy Verified 04/12/17 13:22 PMH/Surg Hx/FS Hx/Imm Hx Endocrine/Hematology History: Denies: Hx Diabetes Cardiovascular History: Denies: Hx Hypertension Respiratory History: Reports: Hx Sleep Apnea, Other Respiratory Problems/ Disorders - CONGESTION IN AM GI History: Reports: Hx Gastroesophageal Reflux Disease - RECENT DIAGNOSIS, NO MED, Hx Irritable Bowel - DAILY FIBER LAXATIVE History: Reports: Other Problems/Disorders - SLIGHTLY ENLARGED PROSTATE, NO CONCERN PER MD Musculoskeletal History: Reports: Hx Arthritis - OSTEOARTHRITIS BILATERAL right KNEE ; and hips Sensory History: Reports: Hx Cataracts - BILAT, Hx Contacts or Glasses - GLASSES Denies: Hx Hearing Aid Opthamlomology History: Reports: Hx Cataracts - BILAT, Hx Contacts or Glasses - GLASSES Neurological History: Reports: Other Neuro Impairments/Disorders - HX OF DIZZINESS AFTER KNEE SURGERY - NONE NOW Psychiatric History: Reports: Hx Anxiety - no med, Hx Depression - Cancer History Hx Chemotherapy: No - Surgical History Surgery Procedure, Year, and Place: [place] [facility] [place] [facility] [place] 2013 BILATERAL CATAR[place] WITH [place] IMPLANTS[place] [facility] [place]. 10/2015 LEFT TOTAL [place], [facility] [place]. [place] 2016 ANAL POL[place], [facility] [place]. 08/2016 [place] [facility] [place] 06/2016 left CTR. 1 tooth implant. 04/17 Total Hip Replacement Hx Anesthesia Reactions: No Infectious Disease History: No Infectious Disease History: Denies: Traveled Outside the [place] in Last 30 Days - Family History Known Family History: Negative: Cardiac Disease, Hypertension, Diabetes - Social History Alcohol Use: Rare Alcohol Amount: 1-2 PER MONTH Substance Use Type: Reports: None Hx Tobacco Use: No Smoking Status (MU): Never Smoked Tobacco Review of Systems Negative: Fever Eyes: Negative ENT: Negative Negative: Chest Pain Negative: Shortness Of Breath Gastrointestinal: Negative Genitourinary: Negative Positive: Edema - RLE and right pedal, Other - Negative ambulatory without assitance Positive: Other - Surgical scar on the upper RLE Neurological: Negative Psychological: Normal All Other Systems Reviewed And Are Negative: Yes Physical Exam - Summary Physical Exam Summary: Appearance: Well appearing, no pain distress Skin: Surgical scar on the lateral right side of hip, . Head/face: normal Eyes: EOMI, ULYSSES ENT: normal Neck: supple, non-tender Respiratory: CTA, breath sounds present Cardiovascular: RRR, pulses symmetrical Abdomen: non-tender, soft Bowel: present Musculoskeletal: right leg is swollen and bruised Neuro: normal, sensory motor intact, A&Ox3, No neurovascular deficit. Triage Information Reviewed: Yes Vital Signs On Initial Exam: Initial Vitals Temp Pulse Resp BP Pulse Ox 98.5 F 103 16 140/75 98 04/12/17 13:20 04/12/17 13:20 04/12/17 13:20 04/12/17 13:20 04/12/17 13:20 Vital Signs Reviewed: Yes Diagnostics - Vital Signs Vital Signs Temp Pulse Resp BP Pulse Ox 04/12/17 13:20 98.5 F 103 16 140/75 98 - Laboratory Lab Results: Lab Results 04/12/17 04/12/17 04/12/17 Range/Units 14:07 14:07 14:07 WBC 8.4 (3.5-10.8) 10^3/ul RBC 3.73 L (4.0-5.4) 10^6/ul Hgb 12.0 L (14.0-18.0) g/dl Hct 34 L (42-52) % MCV 92 (80-94) fL MCH 32 H (27-31) pg MCHC 35 (31-36) g/dl RDW 13 (10.5-15) % Plt Count 249 (150-450) 10^3/ul MPV 9 (7.4-10.4) um3 Neut % (Auto) 74.4 (38-83) % Lymph % (Auto) 12.0 L (25-47) % Pine % (Auto) 10.4 H (1-9) % Eos % (Auto) 2.5 (0-6) % Baso % (Auto) 0.7 (0-2) % Absolute Neuts (auto) 6.2 (1.5-7.7) 10^3/ul Absolute Lymphs (auto) 1.0 (1.0-4.8) 10^3/ul Absolute Monos (auto) 0.9 H (0-0.8) 10^3/ul Absolute Eos (auto) 0.2 (0-0.6) 10^3/ul Absolute Basos (auto) 0.1 (0-0.2) 10^3/ul Absolute Nucleated RBC 0 10^3/ul Nucleated RBC % 0 INR (Anticoag Therapy) 1.94 H (0.89-1.11) APTT 31.6 (26.0-36.3) seconds Sodium 131 L (133-145) mmol/L Potassium 3.6 (3.5-5.0) mmol/L Chloride 99 L (101-111) mmol/L Carbon Dioxide 27 (22-32) mmol/L Anion Gap 5 (2-11) mmol/L BUN 11 (6-24) mg/dL Creatinine 0.71 (0.67-1.17) mg/dL Est GFR ( Amer) 143.2 (>60) Est GFR (Non-Af Amer) 111.3 (>60) BUN/Creatinine Ratio 15.5 (8-20) Glucose 95 (70-100) mg/dL Calcium 8.6 (8.6-10.3) mg/dL Total Bilirubin 0.70 (0.2-1.0) mg/dL AST 34 (13-39) U/L ALT 32 (7-52) U/L Alkaline Phosphatase 73 (34-104) U/L Total Protein 6.1 L (6.4-8.9) g/dL Albumin 3.5 (3.2-5.2) g/dL Globulin 2.6 (2-4) g/dL Albumin/Globulin Ratio 1.3 (1-3) Result Diagrams: 04/12/17 14:07 04/12/17 14:07 Lab Statement: Any lab studies that have been ordered have been reviewed, and results considered in the medical decision making process. - Ultrasound No standard instances Ultrasound Interpretation Completed By: Radiologist - Venous doppler study reveals No evidence of deep venous thrombosis ED physician has reviewed this radiology report and agrees. Lower Extremity Course/Dx - Course Course Of Treatment: This patient is a 67 year old M presenting to [facility] with a chief complaint of edema on the RLE and right pedal since two days ago. Patient reports edema s/p surgery (total hip replacement). Patient denies being ambulatory without assistance, CP SOB, and fever. Venous Doppler study reveals No evidence of deep venous thrombosis. We discussed patient care with Dr. Christy and they recommended stockings. Patient will be discharged home with instructions to to follow up with Dr. Josh portillo The patient is agreeable with this plan. Dx is dependent edema on the right leg, status post right hip surgery. - Diagnoses Differential Diagnosis/HQI/PQRI: Positive: Contusion, DVT, Infection Provider Diagnoses: Dependent edema, S/P hip replacement - Physician Notifications Discussed Care Of Patient With: Jamal Christy Instructed by Provider To: Other - He recommended stockings Discharge - Discharge Plan Condition: Stable Disposition: HOME Patient Education Materials: Leg Edema (ED) Referrals: Alfreda Moreno MD [Medical Doctor] - (Follow up with 3 days) Isis Chacon MD [Primary Care Provider] - The documentation as recorded by the Shaka cardenas Abhishek accurately reflects the service I personally performed and the decisions made by , Juancho Ontiveros.
[2017-04-12 17:22] VITALS: BP 129/74
== END 2017-04-12 17:22 | disposition home or self-care (01) ==
LOC: ED 13:16
DX: R60.9 Edema, unspecified (principal); Z96.649 Presence of unspecified artificial hip joint
CPT/HCPCS: 36415; 80053; 85025; 85610; 85730; 99284

== ENCOUNTER 2017-04-16 04:02 | Emergency (ER) | payer OTHER ==
[2017-04-16] MEDS ORDERED: Aspirin Low Dose CHEW TAB* 81 MG PO ONE (04:03)
[2017-04-16 04:48] LABS: Hematocrit 34 % (42-52); Hemoglobin 11.8 g/dl (14.0-18.0); Mean Corpuscular HGB Conc 35 g/dl (31-36); Mean Corpuscular Hemoglobin 32 pg (27-31); Mean Corpuscular Volume 92 fL (80-94); Mean Platelet Volume 8 um3 (7.4-10.4); Red Blood Count 3.71 10^6/ul (4.0-5.4); Red Cell Distribution Width 13 % (10.5-15); White Blood Count 9.2 10^3/ul (3.5-10.8)
[2017-04-16 04:58] LABS: Albumin 3.5 g/dL (3.2-5.2); BUN/Creatinine Ratio 19.5 (8-20); Calcium 8.5 mg/dL (8.6-10.3); EGFR African American 121.3 (>60); EGFR Non-African American 94.3 (>60); Globulin 2.6 g/dL (2-4); Potassium 3.4 mmol/L (3.5-5.0); Total Bilirubin 0.6 mg/dL (0.2-1.0); Total Protein 6.1 g/dL (6.4-8.9)
[2017-04-16 05:00] LABS: Troponin I 0.01 ng/mL (<0.04)
[2017-04-16] MEDS ORDERED: Iohexol 350* (CONTRAST) 500 ML MDV IV ONE (05:11)
[2017-04-16 05:28] LABS: TSH (Thyroid Stimulating Horm) 1.31 mcIU/mL (0.34-5.60)
--- NOTE | 2017-04-16 08:00 | RAD ---
HISTORY: Syncope, COMPARISONS: None TECHNIQUE: Multiple contiguous axial CT scans were obtained of the head without intravenous contrast. FINDINGS: HEMORRHAGE/INFARCT: There is no hemorrhage or acute infarct. MASSES/SHIFT: There is no mass or shift. EXTRA-AXIAL SPACES: There are no extra-axial fluid collections. SULCI AND VENTRICLES: The sulci and ventricles are normal in size and position for the patient's stated age. CEREBRUM: There are no focal parenchymal abnormalities. BRAINSTEM: There are no focal parenchymal abnormalities. CEREBELLUM: There are no focal parenchymal abnormalities. VESSELS: The vessels are grossly normal. PARANASAL SINUSES: The paranasal sinuses are clear. ORBITS: The orbits are unremarkable. BONES AND SOFT TISSUE: No bone or soft tissue abnormalities are noted. OTHER: None IMPRESSION: NO ACUTE INTRACRANIAL PATHOLOGY.
--- NOTE | 2017-04-16 08:03 | RAD ---
HISTORY: Fall, pain COMPARISONS: None TECHNIQUE: Multiple contiguous axial CT scans were obtained of the cervical spine without intravenous contrast, with coronal and sagittal multiplanar reformations. FINDINGS: BRAIN: The visualized brain is unremarkable CENTRAL CANAL: Evaluation of the central canal is limited on CT technique; however, there is no obvious canalicular mass or epidural hemorrhage. ALIGNMENT: There is a scoliotic curvature of the spine VERTEBRAL BODIES: There is multilevel anterolateral marginal osteophyte formation. There are sclerotic active endplate changes at C5-C6. JOINTS: There is diffuse uncovertebral and facet osteoarthritic change. There is fusion across the facet joints on the left at C4. MUSCULATURE: Unremarkable INTERVERTEBRAL DISCS: There is diffuse loss of intervertebral disc height. AXIAL IMAGES: C2-C3: There is moderate left neural foraminal narrowing. There is no osseous canal stenosis. C3-C4: There is posterior osteophytic region with bilateral uncovertebral and facet hypertrophy. There is severe bilateral neural foraminal narrowing. There is no osseous central canal stenosis C4-C5: There is bilateral uncovertebral and facet hypertrophy. There is severe left and moderate right neural foraminal narrowing. There is no osseous central canal stenosis. C5-C6: There is bilateral uncovertebral and facet hypertrophy. There is severe bilateral neural foraminal narrowing. There is no osseous central canal stenosis. C6-C7: There is bilateral uncovertebral hypertrophy. There is moderate bilateral neural foraminal narrowing. There is no osseous central canal stenosis. C7-T1: There is no osseous neural foraminal narrowing or central canal stenosis. SOFT TISSUES: The patient is status post left hemithyroidectomy. The prevertebral fat stripe is preserved. OTHER: None. IMPRESSION: 1. DEGENERATIVE DISC DISEASE AND OSTEOARTHRITIS. 2. THERE IS MULTILEVEL NEURAL FORAMINAL NARROWING DESCRIBED ABOVE. THERE IS NO OSSEOUS CENTRAL CANAL STENOSIS.
--- NOTE | 2017-04-16 08:04 | RAD ---
INDICATION: Chest pain COMPARISON: March 23, 2017 TECHNIQUE: AP seated and lateral views were obtained. FINDINGS: Bones/Soft Tissues: There are no acute bony findings. Cardiomediastinal: The cardiomediastinal silhouette is normal. Lungs: There are no infiltrates. Pleura: There are no pleural effusions. Other: None IMPRESSION: NO ACTIVE DISEASE.
--- NOTE | 2017-04-16 08:05 | RAD ---
INDICATION: Right hip arthroplasty. Recent fall COMPARISON: Right hip April 07, 2017 TECHNIQUE: An AP view of the pelvis and AP views of the hip in neutral and crosstable lateral position were obtained FINDINGS: Bones: There are no acute bony findings. Joint spaces: There is right hip arthroplasty. There is no evidence of hardware failure. SI joints/symphysis: The SI joints and symphysis are intact. Other: None IMPRESSION: RIGHT HIP ARTHROPLASTY. NO EVIDENCE OF HARDWARE FAILURE OR ACUTE FINDING
[2017-04-16 08:16] LABS: Urine Bilirubin Negative (Negative); Urine Glucose Negative (Negative); Urine Nitrite Negative (Negative)
--- NOTE | 2017-04-16 08:18 | RAD ---
HISTORY: Right leg swelling COMPARISONS: April 12, 2017 TECHNIQUE: Multiple transverse and longitudinal ultrasound images were obtained of the right lower extremity from the level of the common femoral vein inferiorly through to the infrapopliteal veins using grayscale, color Doppler, and spectral Doppler imaging with and without compression and with augmentation. Comparison images were obtained of the contralateral common femoral vein. FINDINGS: VEINS: The venous system of the right lower extremity is compressible throughout its course, with normal flow on color Doppler imaging and normal response to augmentation on spectral Doppler imaging. SOFT TISSUES: There is subcutaneous edema distally. OTHER FINDINGS: None. IMPRESSION: NO RIGHT LOWER EXTREMITY DEEP VEIN THROMBOSIS
--- NOTE | 2017-04-16 08:18 | RAD ---
HISTORY: Chest pain COMPARISONS: None TECHNIQUE: Multiple contiguous axial CT scans of the chest were obtained after the administration of nonionic intravenous contrast, timed to the pulmonary arterial phase of contrast enhancement.. Coronal and sagittal multiplanar reformations are also submitted for review. FINDINGS: NECK AND THYROID: The left thyroid gland is hypoplastic versus absent. CHEST WALL: There is no lower cervical, axillary, or supraclavicular lymphadenopathy by size criteria. HEART AND PERICARDIUM: The heart is unremarkable. AORTA AND PULMONARY VASCULATURE: There is no pulmonary arterial filling defect to suggest pulmonary embolism. There is no linear filling defect within the aorta to suggest aortic dissection. MEDIASTINUM: There is no mediastinal lymphadenopathy by size criteria. COLIN: There is no hilar lymphadenopathy by size criteria. AIRWAY AND ESOPHAGUS: The airway is unremarkable, without endobronchial filling defect. The esophagus is grossly normal. LUNG PARENCHYMA: The lungs are clear. PLEURA: No pleural abnormalities are noted. UPPER ABDOMEN: The upper abdomen is unremarkable. BONES AND SOFT TISSUES: Mild degenerative changes are noted OTHER: None. IMPRESSION: NO PULMONARY ARTERIAL FILLING DEFECT TO SUGGEST PULMONARY EMBOLISM.
--- NOTE | 2017-04-16 08:38 | ED ---
Kelsey Camp Alfonso, scribed for Leonie Carroll MD on 04/16/17 at 0416 . HPI Chest Pain - HPI Summary HPI Summary: This patient is a 67 year old M BIBA to [facility] with a chief complaint of 15 minutes of left-sided CP which woke him up from sleep at approximately 0300. The CP did not radiate and is currently resolved. Patient is s/p a total right hip replacement on 04/07/17. The patient rates the pain 8/10 in severity at its worst. Symptoms aggravated by nothing. Symptoms alleviated by spontaneous resolution. Patient reports diaphoresis, right leg swelling, right leg bruising , dizziness, confusion, syncope, fall, head trauma, and urinary incontinence. Patient denies SOB, neck pain, bowel incontinence, abdominal pain, and N/V. Pt was in ED on 04/10/17 for right leg swelling, had neg ultrasound for DVT. Pt is on warfarin. Pt states the leg has continued to swell. - History of Current Complaint Chief Complaint: EDChestPainROMI Hx Obtained From: Patient Onset/Duration: Started Minutes Ago, Resolved Time of Onset: 03:00 Timing: Constant, Lasting Minutes - 15 Initial Severity: Moderate Current Severity: Severe Pain Intensity: 8 Pain Scale Used: 0-10 Numeric Chest Pain Location: Discrete at: - Left-sided Chest Pain Radiates: No Character: Dull/Aching Aggravating Factor(s): Nothing Alleviating Factor(s): Spontaneous Resolution Associated Signs and Symptoms: Positive: Chest Pain, Dizziness, Swelling - right leg, Syncope, Diaphoresis, Other: - diaphoresis, right leg swelling, right leg bruising, dizziness, confusion, syncope, fall, head trauma, and urinary incontinency. Patient denies SOB, neck pain, bowel incontinency, abdominal pain, and N/V. - Additional Pertinent History Primary Care Physician: [id number] - Allergy/Home Medications Allergies/Adverse Reactions: Allergies Allergy/AdvReac Type Severity Reaction Status Date / Time No Known Allergies Allergy Verified 04/12/17 13:22 Home Medications: Home Medications Docusate CAP* [Colace Cap*] 200 - 300 mg PO DAILY PRN 04/16/17 [History Confirmed 04/16/17] Tamsulosin CAP* [Flomax CAP*] 0.4 mg PO DAILY 04/16/17 [History Confirmed ] Warfarin TAB(*) [Coumadin TAB(*)] 4 mg PO 1700 04/16/17 [History Confirmed 04/16] oxyCODONE/Acetamin 5/325 MG* [Percocet 5/325 TAB*] 1 - 2 tab PO Q4H PRN MDD 10 04/16/17 [History Confirmed 04/16/17] PMH/Surg Hx/FS Hx/Imm Hx Previously Healthy: No Endocrine/Hematology History: Denies: Hx Diabetes Cardiovascular History: Denies: Hx Hypertension Respiratory History: Reports: Hx Sleep Apnea GI History: Reports: Hx Gastroesophageal Reflux Disease - RECENT DIAGNOSIS, NO MED, Hx Irritable Bowel - DAILY FIBER LAXATIVE History: Reports: Other Problems/Disorders - SLIGHTLY ENLARGED PROSTATE Musculoskeletal History: Reports: Hx Arthritis - OSTEOARTHRITIS BILATERAL right KNEE ; and hips Sensory History: Reports: Hx Cataracts - BILAT, Hx Contacts or Glasses - GLASSES Denies: Hx Hearing Aid Opthamlomology History: Reports: Hx Cataracts - BILAT, Hx Contacts or Glasses - GLASSES Neurological History: Reports: Other Neuro Impairments/Disorders Psychiatric History: Reports: Hx Anxiety - no med, Hx Depression - Cancer History Hx Chemotherapy: No - Surgical History Surgery Procedure, Year, and Place: 1996 [place] [facility] [place] UMBILICAL H[place]PA[place], [facility] [place] 2013 BILATERAL CATARACT [place]TRA[place] WITH IOL IMPLANTS, [facility] [place]. 10/2015 LEFT TOTAL [place]PLAC[place], [facility] [place]. MAY 2016 ANAL POLYP EXCISION, [facility] [place]. right THR 04/07/17. 08/2016 RIGHT CTR, [facility] [place]. 06/2016 left CTR. 1 tooth implant. 04/17 Total Hip Replacement Hx Anesthesia Reactions: No - Immunization History Immunizations Up to Date: Yes Infectious Disease History: No Infectious Disease History: Denies: Traveled Outside the [place] in Last 30 Days - Family History Known Family History: Positive: Other - Cancer 49 y.o father, dementia mother Negative: Cardiac Disease, Hypertension, Diabetes - Social History Occupation: Employed Full-time Alcohol Use: Rare Alcohol Amount: 1-2 PER MONTH Hx Substance Use: No Substance Use Type: Reports: None Hx Tobacco Use: No Smoking Status (MU): Never Smoked Tobacco Review of Systems Positive: Skin Diaphoresis. Negative: Fever Positive: Chest Pain Negative: Shortness Of Breath Positive: Abdominal Pain, Vomiting, Nausea, Other - Negative bowel incontinence Positive: incontinence - urine Positive: Other - right leg swelling, right leg bruising; Negative neck pain Neurological: Other - dizziness, confusion, syncope, fall, head trauma Psychological: Normal All Other Systems Reviewed And Are Negative: Yes Physical Exam Triage Information Reviewed: Yes Vital Signs On Initial Exam: Initial Vitals Temp Pulse Resp BP Pulse Ox 99 F 107 24 126/76 95 04/16/17 04:04 04/16/17 04:04 04/16/17 04:04 04/16/17 04:04 04/16/17 04:04 Vital Signs Reviewed: Yes Appearance: Positive: Well-Appearing, Well-Nourished, Pain Distress Skin: Positive: Warm, Skin Color Reflects Adequate Perfusion, Other - Dorsum of DIP of right great toe superficial abrasion. Extensive ecchymosis of most of the RLE. Right hip surgical incision has minimal bruising, is dry, and is intact. Head/Face: Positive: Normal Head/Face Inspection Eyes: Positive: Conjunctiva Clear ENT: Positive: Normal ENT inspection Neck: Positive: Supple, Nontender Respiratory/Lung Sounds: Positive: Clear to Auscultation, Breath Sounds Present , Other - No respiratory distress Cardiovascular: Positive: RRR, Pulses are Symmetrical in both Upper and Lower Extremities, Leg Edema Right, Other - Brisk capillary refill. Negative: Murmur Abdomen Description: Positive: Nontender, Soft Bowel Sounds: Positive: Present Musculoskeletal: Positive: Strength/ROM Intact, Edema Right - Edematous RLE with extensive bruising. Neurological: Positive: Sensory/Motor Intact, Alert, Oriented to Person Place, Time, CN Intact II-III - II-XII, Facial Symmetry, Speech Normal Psychiatric: Positive: Normal - Denise Coma Scale Best Eye Response: 4 - Spontaneous Best Motor Response: 6 - Obeys Commands Best Verbal Response: 5 - Oriented Coma Scale Total: 15 Diagnostics - Vital Signs Vital Signs Temp Pulse Resp BP Pulse Ox 04/16/17 04:04 99 F 107 24 126/76 95 - Laboratory Lab Results: Lab Results 04/16/17 04/16/17 04/16/17 Range/Units 04:30 04:30 04:30 WBC (3.5-10.8) 10^3/ul RBC (4.0-5.4) 10^6/ul Hgb (14.0-18.0) g/dl Hct (42-52) % MCV (80-94) fL MCH (27-31) pg MCHC (31-36) g/dl RDW (10.5-15) % Plt Count (150-450) 10^3/ul MPV (7.4-10.4) um3 Neut % (Auto) (38-83) % Lymph % (Auto) (25-47) % [place] % (Auto) (1-9) % Eos % (Auto) (0-6) % Baso % (Auto) (0-2) % Absolute Neuts (auto) (1.5-7.7) 10^3/ul Absolute Lymphs (auto) (1.0-4.8) 10^3/ul Absolute Monos (auto) (0-0.8) 10^3/ul Absolute Eos (auto) (0-0.6) 10^3/ul Absolute Basos (auto) (0-0.2) 10^3/ul Absolute Nucleated RBC 10^3/ul Nucleated RBC % INR (Anticoag Therapy) 1.71 H (0.89-1.11) APTT 27.4 (26.0-36.3) seconds D-Dimer, Quantitative 526 H (Less Than 230) ng/mL Sodium 133 (133-145) mmol/L Potassium 3.4 L (3.5-5.0) mmol/L Chloride 101 (101-111) mmol/L Carbon Dioxide 27 (22-32) mmol/L Anion Gap 5 (2-11) mmol/L BUN 16 (6-24) mg/dL Creatinine 0.82 (0.67-1.17) mg/dL Est GFR ( Amer) 121.3 (>60) Est GFR (Non-Af Amer) 94.3 (>60) BUN/Creatinine Ratio 19.5 (8-20) Glucose 99 (70-100) mg/dL Lactic Acid (0.5-2.0) mmol/L Calcium 8.5 L (8.6-10.3) mg/dL Magnesium 2.0 (1.9-2.7) mg/dL Total Bilirubin 0.60 (0.2-1.0) mg/dL AST 23 (13-39) U/L ALT 28 (7-52) U/L Alkaline Phosphatase 82 (34-104) U/L Total Creatine Kinase 63 (10-223) U/L CK-MB (CK-2) 2.1 (0.6-6.3) ng/mL Troponin I 0.01 (<0.04) ng/mL B-Natriuretic Peptide 14 ( - 100) pg/mL Total Protein 6.1 L (6.4-8.9) g/dL Albumin 3.5 (3.2-5.2) g/dL Globulin 2.6 (2-4) g/dL Albumin/Globulin Ratio 1.3 (1-3) TSH 1.31 (0.34-5.60) mcIU/mL 04/16/17 04/16/17 Range/Units 04:30 04:30 WBC 9.2 (3.5-10.8) 10^3/ul RBC 3.71 L (4.0-5.4) 10^6/ul Hgb 11.8 L (14.0-18.0) g/dl Hct 34 L (42-52) % MCV 92 (80-94) fL MCH 32 H (27-31) pg MCHC 35 (31-36) g/dl RDW 13 (10.5-15) % Plt Count 320 (150-450) 10^3/ul MPV 8 (7.4-10.4) um3 Neut % (Auto) 78.6 (38-83) % Lymph % (Auto) 10.2 L (25-47) % [place] % (Auto) 8.1 (1-9) % Eos % (Auto) 2.6 (0-6) % Baso % (Auto) 0.5 (0-2) % Absolute Neuts (auto) 7.3 (1.5-7.7) 10^3/ul Absolute Lymphs (auto) 0.9 L (1.0-4.8) 10^3/ul Absolute Monos (auto) 0.8 (0-0.8) 10^3/ul Absolute Eos (auto) 0.2 (0-0.6) 10^3/ul Absolute Basos (auto) 0.1 (0-0.2) 10^3/ul Absolute Nucleated RBC 0 10^3/ul Nucleated RBC % 0 INR (Anticoag Therapy) (0.89-1.11) APTT (26.0-36.3) seconds D-Dimer, Quantitative (Less Than 230) ng/mL Sodium (133-145) mmol/L Potassium (3.5-5.0) mmol/L Chloride (101-111) mmol/L Carbon Dioxide (22-32) mmol/L Anion Gap (2-11) mmol/L BUN (6-24) mg/dL Creatinine (0.67-1.17) mg/dL Est GFR ( Amer) (>60) Est GFR (Non-Af Amer) (>60) BUN/Creatinine Ratio (8-20) Glucose (70-100) mg/dL Lactic Acid 0.8 (0.5-2.0) mmol/L Calcium (8.6-10.3) mg/dL Magnesium (1.9-2.7) mg/dL Total Bilirubin (0.2-1.0) mg/dL AST (13-39) U/L ALT (7-52) U/L Alkaline Phosphatase (34-104) U/L Total Creatine Kinase (10-223) U/L CK-MB (CK-2) (0.6-6.3) ng/mL Troponin I (<0.04) ng/mL B-Natriuretic Peptide ( - 100) pg/mL Total Protein (6.4-8.9) g/dL Albumin (3.2-5.2) g/dL Globulin (2-4) g/dL Albumin/Globulin Ratio (1-3) TSH (0.34-5.60) mcIU/mL Result Diagrams: 04/16/17 04:30 04/16/17 04:30 Lab Statement: Any lab studies that have been ordered have been reviewed, and results considered in the medical decision making process. - Radiology CXR Radiology Interpretation Completed By: ED Physician - NAD Hip/Pelvic XR Radiology Interpretation Completed By: ED Physician - Prosthesis in place. No obvious fracture or dislocation. - CT Brain CT Interpretation Completed By: Radiologist - No acute brain parenchymal abnormality. No hemorrhage, mass or acute territorial infarct. Age-related involutional changes and chronic small vessel ischemic changes. No skull fracture. Clear visualized paranasal sinuses. Visualized mastoid air cells clear. ED physician has reviewed this radiology report and agrees. C-Spine CT Interpretation Completed By: Radiologist - No acute fracture. Multilevel spondylosis. Minimal rotation C1-C2, probably positional. Left hemithyroidectomy. ED physician has reviewed this radiology report and agrees. CTA Chest CT Interpretation Completed By: Radiologist - Pending official interpretation from radiologist. See [facility]. - EKG 0406 Cardiac Rate: Tachycardia EKG Rhythm: Sinus Tachycardia - [address] Segment: Non-Specific EKG Interpretation: Nml AV/IV conduction time and QTc. Negative axis -64. EKG Comparison: No Significant Change - 04/10 - Additional Comments Diagnostic Additional Comments: Venous Doppler study Pending official interpretation from radiologist. See [facility]. Re-Evaluation - Re-Evaluation First Eval Re-Evaluation Time: 07:30 - No chest pain, SOB. No confusion, no headache. Discussed results of labs and CT brain, CT C-spine, CTA chest, unofficial hip xray, unofficial CXR. Ultrasound present. Change: Improved Chest Pain Course/Dx - Course Assessment/Plan: Patients medications reviewed this visit. In the ED course the patient was given ASA. Patient is signed out to Dr. Sheth, pending disposition, awaiting CTA Chest and Venous Doppler Study and second troponin. - Chest Pain Differential Diagnosis/HQI/PQRI: Acute MT, ACS, Pulmonary Embolism - Diagnoses Provider Diagnoses: Chest pain, Syncope, Right leg swelling Discharge - Discharge Plan Condition: Stable Disposition: OTHER Discharge Disposition Comment: care to Dr. Sheth, pending ultrasound right leg and repeat troponin Referrals: Isis Chacon MD [Primary Care Provider] - The documentation as recorded by the Kelsey cardenas Alfonso accurately reflects the service I personally performed and the decisions made by , Leonie Carroll MD.
[2017-04-16 10:03] VITALS: BP 144/79
--- NOTE | 2017-04-16 18:56 | ED ---
Kuldip Camp Angela, scribed for Brooks Sheth MD on 04/16/17 at 0819 . Progress - Progress Note Progress Note: This pt was signed out by Dr. Carroll, pending disposition, awaiting CTA chest and venous doppler study of RLE. This pt is a 67 y/o male presenting to [facility] c/o sudden onset of chest pain at approximately 0300 today. Pt reports he was awoken from sleep this morning. Pt states at onset of chest pain he felt extremely faint, diaphoretic, and disoriented. He notes he got up and fell and his his chin. Pt had a total right hip replacement on 04/07/[address] Moreno. VITAL SIGNS: Reviewed. GENERAL: Patient is a well-developed and nourished male who is lying comfortable in the stretcher. Patient is not in any acute respiratory distress. HEAD AND FACE: No signs of trauma. No ecchymosis, hematomas or skull depressions. No sinus tenderness. EYES: PERRLA, EOMI x 2, No injected conjunctiva, no nystagmus. EARS: Hearing grossly intact. Ear canals and tympanic membranes are within normal limits. MOUTH: Oropharynx within normal limits. NECK: Supple, trachea is midline, no adenopathy, no JVD, no carotid bruit, no c- spine tenderness, neck with full ROM. CHEST: Symmetric, no tenderness at palpation LUNGS: Clear to auscultation bilaterally. No wheezing or crackles. CVS: Pt is tachycardic, S1 and S2 present, no murmurs or gallops appreciated. ABDOMEN: Soft, non-tender. No signs of distention. No rebound no guarding, and no masses palpated. Bowel sounds are normal. EXTREMITIES: FROM in all major joints, no cyanosis or clubbing. RLE: there is swelling and some ecchymosis. NEURO: Alert and oriented x 3. No acute neurological deficits. Speech is normal and follows commands. SKIN: Dry and warm The pt will be discharged home in stable condition with a diagnosis of chest pain. - Results/Orders Results/Orders: CTA Chest, per radiologist: IMPRESSION: No pulmonary arterial filling defect to suggest pulmonary embolism. ED physician has reviewed this radiology report and agrees. Venous Doppler Study, Right Lower Extremity, per radiologist: IMPRESSION: No right lower extremity deep vein thrombosis. ED physician has reviewed this radiology report and agrees. Re-Evaluation - Re-Evaluation First Eval Re-Evaluation Time: 07:30 - No chest pain, SOB. No confusion, no headache. Discussed results of labs and CT brain, CT C-spine, CTA chest, unofficial hip xray, unofficial CXR. Ultrasound present. Change: Improved Course/Dx - Course Course Of Treatment: This pt was signed out by Dr. Carroll. She reported the pt was having chest pain. She ordered a chest CTA and a second troponin. She recommends that if these are negative, the pt should be discharged home with follow up from his PCP. The chest CTA shows no pulmonary arterial filling defect to suggest pulmonary embolism. The second troponin is 0.00. Pt will be discharged home with follow up from his PCP. The US of the right lower extremity is negative for DVT. Pt is hemodynamically stable, alert and oriented x3. The pt will be discharged home in stable condition with a diagnosis of chest pain. - Diagnoses Provider Diagnoses: Chest pain The documentation as recorded by the Kuldip cardenas Angela accurately reflects the service I personally performed and the decisions made by , Brooks Sheth MD.
== END 2017-04-16 10:13 | disposition home or self-care (01) ==
LOC: ED 04:02
DX: R07.9 Chest pain, unspecified (principal); Z79.01 Long term (current) use of anticoagulants; R55 Syncope and collapse; M79.89 Other specified soft tissue disorders
CPT/HCPCS: 36415; 70450; 71020; 71275; 72125; 80053; 81003; 82550; 82553; 83605; 83735; 83880; 84443; 84484; 85025; 85379; 85610; 85730; 93005; 96374; 99283; A9270-GY; Q9967

== ENCOUNTER → 2019-07-06 15:03 | Emergency (ER) | payer OTHER ==
[~2019-07-06 15:03] MED LIST changes: -Buffered Lidocaine 0.9% SYRIN* 5 ML/SYR SYRINGE INTRADERM ONE; -Dexamethasone TAB* 4 MG PO ONE; -Famotidine IV* 10 MG/ML 2 ML (20 mg) IV ONE; +oxyCODONE/Acetamin 5/325 MG* TAB PO ONE
--- OUTSIDE RECORDS SUMMARY | 2019-07-06 15:28 | XMS REPORT | Continuity of Care Document ---
:1950 External Reference #:[id number] Author Name Linn Arzate O.D. Address [address] [place] [address] Care Team Providers Name Role Phone Isis Chacon M.D. 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 - Adult Care Team Information Yarn Texturing Machine Operator [phone] Reconstructive Orthopaedic Surgery Problems Active Problems Provider Date Knee pain Onset: Note: left Presence of intraocular lens Linn Arzate O.D. Onset: 04/10/2016 Presbyopia Linn Arzate O.D. Onset: 03/11/2017 Sleep apnea Onset: Asthma Onset: Joint pain Onset: Large prostate Onset: Difficulty sleeping Onset: Anxiety Onset: Vitreous degeneration Linn Arzate O.D. Onset: 05/11/2019 Social History Type Date Description Comments Sex Unknown ETOH Use Denies alcohol use Tobacco Use Start: Unknown Patient has never smoked Recreational Drug Use Denies Drug Use Smoking Status Reviewed: 05/11/19 Patient has never smoked Allergies, Adverse Reactions, Alerts Active Allergies Reaction Severity Comments Date Seasonal Moderate 05/11/2019 Animals Moderate 05/11/2019 Medications Active Medications SIG Qnty Indications Ordering Provider Date Celecoxib Unknown 200mg Capsules Amoxicillin Take 1 Tablet By Unknown 875mg Tablets Mouth Every 12 Hours Fish Oil 1 by mouth every Unknown 1000mg Capsules day Glucosamine Unknown Chondroitin 1500 Complex 1500Com Capsules Trazodone HCL TK 1 To 2 TS PO Unknown 50mg hs PRF DEPUTY ATTORNEY GENERAL Tablets Advair HFA Unknown 115-21mcg/Act Aerosol Tamsulosin HCL take 1 capsule by Unknown 0.4mg mouth once daily Capsules Immunizations Description No Information Available Vital Signs Description No Information Available Results Description No Information Available Procedures Description No Information Available Medical Devices Description No Information Available Encounters Description No Information Available Assessments Date Code Description Provider 05/11/2019 H43.813 Vitreous degeneration, bilateral Linn Arzate O.D. 05/11/2019 H52.4 Presbyopia Linn Arzate O.D. 05/11/2019 Z96.1 Presence of intraocular lens Linn Arzate O.D. Plan of Treatment 05/11/2019 - Linn Arzate O.D.H43.813 Vitreous degeneration, bilateralComments:You have a Posterior Vitreous Detachment. Please read the pamphlet that was given to you. If you have any changes in your floaters or flashing lights, please contact this office.H52.4 PresbyopiaComments:You have presbyopia. This is when the lens in your eye loses the ability to change focus , and happens as we age. A pair of reading glasses will help you see up close.Follow up:1 Year Follow Up You can expect to have your eyes dilated at your next visit. If Dr. Arzate orders any additional testing, it may require extra time. We recommend that you bring sunglasses, as dilation drops often make you light sensitive until they wear off. We always recommend you bring someone to drive you home if you are uncomfortable driving with your eyes dilated. If you have any questions before your next visit, feel free to call our office at .Z96.1 Presence of intraocular lensComments:The artificial lens implants in both eyes appear to be stable at this time. Functional Status Description No Information Available Mental Status Description No Information Available Referrals Description No Information Available
--- OUTSIDE RECORDS SUMMARY | 2019-07-06 15:28 | XMS REPORT | Continuity of Care Document ---
:1950 External Reference #:[id number] Author Name Alfreda Moreno M.D. (transmitted by agent of provider Tania Gandhi) Address [address] [place] [address] Care Team Providers Name Role Phone Isis Chacon MD - Internal Care Team Information Machine [employer] Medicine Problems Active Problems Provider Date Localized, primary osteoarthritis Alfreda Moreno M.D. Onset: 09/14/2015 Knee pain Alfreda Moreno M.D. Onset: 11/05/2015 Lightheadedness Miriam Astudillo M.D. Onset: 12/24/2015 Constipation Miriam Astudillo M.D. Onset: 12/24/2015 Anxiety Miriam Astudillo M.D. Onset: 12/24/2015 Disturbance in sleep behavior Lisa Toure MD Onset: 08/26/2016 Obstructive sleep apnea syndrome Lisa Toure MD Onset: 09/23/2016 Localized, primary osteoarthritis of the Alfreda Moreno M.D. Onset: 01/23/2017 pelvic region and thigh Arthroplasty of knee Alfreda Moreno M.D. Onset: 01/23/2017 Prosthetic arthroplasty of the hip Alfreda Moreno M.D. Onset: 04/20/2017 Social History Type Date Description Comments Sex Unknown ETOH Use Rarely consumes alcohol Tobacco Use Start: Unknown Patient has never smoked Recreational Drug Use Denies Drug Use Smoking Status Reviewed: 05/13/19 Patient has never smoked Exercise Type/Frequency Exercises regularly Allergies, Adverse Reactions, Alerts Active Allergies Reaction Severity Comments Date NKDA 08/24/2013 Environmental 01/29/2017 Medications Active Medications SIG Qnty Indications Ordering Date Provider Compression Stockings /30 bl le edema 2units Alfreda Moreno, 01/23/2017 Florin Misc Col Rite as needed/directed Unknown 08/25/2016 Celecoxib take one twice a Unknown 100mg Capsules day with food Acetaminophen Extra 1 tab by mouth Unknown Strength twice a day as 500mg Tablets needed Glucosamine twice a day by Unknown Chondroitin Complex mouth Capsules Methylcellulose 4-6 tablets after Unknown meals Fish Oil twice a day Unknown Milk Of Magnesia 30ml by mouth daily Unknown as needed for 400mg/5ML Suspension constipation Amoxicillin take 4 tablets by Unknown 500mg Tablets mouth 1 hour before dental procedure Advair HFA Unknown Medications Administered in Office Medication SIG Qnty Indications Ordering Provider Date Depomedrol 40MG Alfreda Moreno M.D. 2019 Injection Depomedrol 40MG Alfreda Moreno M.D. 2019 Injection Depomedrol 40MG Alfreda Moreno M.D. 04/07/2018 Injection Depomedrol 40MG Alfreda Moreno M.D. 01/23/2017 Injection Depomedrol 40MG Miriam Astudillo M.D. 12/24/2015 Injection Depomedrol 40MG Miriam Astudillo M.D. 12/24/2015 Injection Inj, Regadenoson, 0.1 MG Fransisco Dowling DO [facility] 10/31/2015 Injection Technetium TC 99M Fransisco Dowling, DO [facility] 10/31/2015 Tetrofosmin, Per Unit Dose Up To 40 Millicuries Injection Immunizations Description No Information Available Vital Signs Date Vital Result Comment 05/13/2019 11:46am Height 66 inches 5'6" Weight 196.00 lb Heart Rate 92 /min BP Systolic 160 mmHg BP Diastolic 82 mmHg Respiratory Rate 18 /min Pain Level 3 BMI (Body Mass Index) 31.6 kg/m2 2019 11:20am Height 66 inches 5'6" Weight 198.00 lb Heart Rate 85 /min BP Systolic 128 mmHg BP Diastolic 69 mmHg Body Temperature 96.9 F Pain Level 0 BMI (Body Mass Index) 32.0 kg/m2 Results Test Acquired Date Facility Test Result H/L Range Note Xray 2019 [facility] Inj/Aspir Major JT Or Bursa <pending> W/ US Procedures Date Code Description Status 2019 Inj/Aspir Major JT Or Bursa W/ US Completed 2019 Inject/Drain Joint/Bursa Major W/O US Completed 05/07/2016 [id number] Colonoscopy Completed Medical Devices Description No Information Available Encounters Type Date Location Provider Dx Diagnosis Office Visit 2019 [facility] Alfreda Moreno, M25.561 Pain in right 11:00a at [place] knee M25.461 Effusion, right knee M17.11 Unilateral primary osteoarthritis, right knee M25.552 Pain in left hip M16.12 Unilateral primary osteoarthritis, left hip Assessments Date Code Description Provider 05/13/2019 M25.552 Pain in left hip Alfreda Moreno M.D. 05/13/2019 M16.12 Unilateral primary osteoarthritis, left hip Alfreda Moreno M.D. 2019 M25.561 Pain in right knee Alfreda Moreno M.D. 2019 M25.461 Effusion, right knee Alfreda Moreno M.D. 2019 M17.11 Unilateral primary osteoarthritis, right knee Alfreda Moreno M.D. 2019 M25.552 Pain in left hip Alfreda Moreno M.D. 2019 M16.12 Unilateral primary osteoarthritis, left hip Alfreda Moreno M.D. Plan of Treatment 05/13/2019 - Alfreda Moreno M.D.M25.552 Pain in left hipFollow up:Follow up: M16.12 Unilateral primary osteoarthritis, left hip Functional Status Description No Information Available Mental Status Description No Information Available Referrals Description No Information Available
--- NOTE | 2019-07-06 20:09 | ED ---
Neck Pain - HPI Summary HPI Summary: 69 year old male presents with neck pain today. He states that he was eating lunch and stood up and felt pain in his neck. He states that he was unable to lift his head up. He states he is having spasms. He states the pain has improved. States it does radiate down a shoulder and into his arms. He has never had this pain before. No history of neck surgeries or injuries. He states he was lifting something heavy earlier today. He denies any headache. No change in vision. No nausea or vomiting. He sees been having pain down his left arm for the past 2 months. has had a knee and hip replacement. - History of Current Complaint Chief Complaint: EDNeckComplaint Stated Complaint: NECK INJURY PER PT Time Seen by Provider: 07/06/19 19:06 Pain Intensity: 7 - Allergies/Home Medications Allergies/Adverse Reactions: Allergies Allergy/AdvReac Type Severity Reaction Status Date / Time No Known Allergies Allergy Verified 04/12/17 13:22 PMH/Surg Hx/FS Hx/Imm Hx Endocrine/Hematology History: Denies: Hx Diabetes Cardiovascular History: Denies: Hx Hypertension Respiratory History: Reports: Hx Sleep Apnea, Other Respiratory Problems/ Disorders - CONGESTION IN AM GI History: Reports: Hx Gastroesophageal Reflux Disease - RECENT DIAGNOSIS, NO MED, Hx Irritable Bowel - DAILY FIBER LAXATIVE History: Reports: Other Problems/Disorders - SLIGHTLY ENLARGED PROSTATE Denies: Hx Renal Disease Musculoskeletal History: Reports: Hx Arthritis - OSTEOARTHRITIS BILATERAL right KNEE ; and hips Sensory History: Reports: Hx Cataracts - BILAT, Hx Contacts or Glasses - GLASSES Denies: Hx Hearing Aid Opthamlomology History: Reports: Hx Cataracts - BILAT, Hx Contacts or Glasses - GLASSES Neurological History: Reports: Other Neuro Impairments/Disorders Psychiatric History: Reports: Hx Anxiety - no med, Hx Depression - Cancer History Hx Chemotherapy: No - Surgical History Surgery Procedure, Year, and Place: 1996 NASAL SURGERY, [facility] [place]. 1998 UMBILICAL HERNIA REPAIR, [facility] [place]. 2013 BILATERAL CATARACT EXTRACTION WITH IOL IMPLANTS, [facility] [place]. 10/2015 LEFT TOTAL KNEE REPLACEMENT, [facility] [place]. MAY 2016 ANAL POLYP EXCISION, [facility] [place]. right THR 04/07/17. 08/2016 RIGHT CTR, [facility] [place]. 06/2016 left CTR. 1 tooth implant. 04/17 Total Hip Replacement Hx Anesthesia Reactions: No Infectious Disease History: No Infectious Disease History: Denies: Traveled Outside the [place] in Last 30 Days - Family History Known Family History: Positive: Other - Cancer 49 y.o father, dementia mother Negative: Cardiac Disease, Hypertension, Diabetes - Social History Alcohol Use: Rare Alcohol Amount: 1-2 PER MONTH Hx Substance Use: No Substance Use Type: Reports: None Hx Tobacco Use: No Smoking Status (MU): Never Smoked Tobacco Review of Systems Negative: Fever Negative: Chest Pain Negative: Shortness Of Breath Positive: Myalgia - neck pain All Other Systems Reviewed And Are Negative: Yes Physical Exam Triage Information Reviewed: Yes Vital Signs On Initial Exam: Initial Vitals Temp Pulse Resp BP Pulse Ox 99.2 F 108 19 149/94 100 07/06/19 15:17 07/06/19 15:17 07/06/19 15:17 07/06/19 15:17 07/06/19 15:17 Vital Signs Reviewed: Yes Appearance: Positive: Well-Appearing Skin: Positive: Warm, Dry Head/Face: Positive: Normal Head/Face Inspection Eyes: Positive: Normal, Conjunctiva Clear ENT: Positive: Pharynx normal Respiratory/Lung Sounds: Positive: Clear to Auscultation, Breath Sounds Present Cardiovascular: Positive: Normal, RRR Musculoskeletal: Positive: Strength/ROM Intact - arms, Limited @ - neck able to move neck but unable to complete flex, Other - good pulses, good windlasser strenght, Neurological: Positive: Normal, Reflexes Intact - biceps Psychiatric: Positive: Normal Procedures - Sedation Patient Received Moderate/Deep Sedation with Procedure: No Diagnostics - Vital Signs Vital Signs Temp Pulse Resp BP Pulse Ox 07/06/19 19:55 16 07/06/19 15:17 99.2 F 108 19 149/94 100 - Laboratory Lab Statement: Any lab studies that have been ordered have been reviewed, and results considered in the medical decision making process. - CT neck CT Interpretation Completed By: Radiologist Summary of CT Findings: IMPRESSION: 1. No findings in the cervical spine. 2. 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 If clinically indicated, this can be better assessed with MRI cervical spine. Re-Evaluation - Re-Evaluation First Eval Re-Evaluation Time: 20:39 Change: Improved Comment: pain improved, has full ROM neck Neck Course/Dx - Course Course Of Treatment: 69 year old male presents with neck pain today. He states that he was eating lunch and stood up and felt pain in his neck. He states that he was unable to lift his head up. He states he is having spasms. He states the pain has improved. States it does radiate down a shoulder and into his arms. He has never had this pain before. No history of neck surgeries or injuries. He states he was lifting something heavy earlier today. He denies any headache. No change in vision. No nausea or vomiting. He sees been having pain down his left arm for the past 2 months. has had a knee and hip replacement. On exam tenderness of her neck. Is able to move the neck but is unable to fully extend or flex it. No neuro deficit noted to extremities. CT neck shows no acute findings. pain declined muscle relaxers. told follow up with primary. patient understand and agrees with plan. - Diagnoses Differential Dx/HQI/PQRI: Positive: Cervical Fracture, Sprain, Strain Provider Diagnoses: Neck pain Discharge ED - Sign-Out/Discharge Documenting (check all that apply): Patient Departure - Discharge Plan Condition: Good Disposition: HOME Patient Education Materials: Neck Pain (ED) Referrals: Isis Chacon MD [Primary Care Provider] - Additional Instructions: Use Tylenol for pain every 6 hours ice/heat area, move as much as possible Follow up with primary within 5 days Return to ED if develop any new or worsening symptoms - Billing Disposition and Condition Condition: GOOD Disposition: Home
[2019-07-06 20:52] VITALS: BP 147/92
== END | disposition home or self-care (01) ==
LOC: ED 15:03
DX: M54.2 Cervicalgia (principal); K21.9 Gastro-esophageal reflux disease without esophagitis; M17.0 Bilateral primary osteoarthritis of knee; M16.0 Bilateral primary osteoarthritis of hip; F41.9 Anxiety disorder, unspecified; F32.9 Major depressive disorder, single episode, unspecified; Z96.652 Presence of left artificial knee joint; Z96.649 Presence of unspecified artificial hip joint
CPT/HCPCS: 72125; 99282; A9270-GY

== ENCOUNTER 2019-12-27 08:22 | Observation (INO) ==
[~2019-12-27 08:22] MED LIST changes: +Buffered Lidocaine 1% SYRIN 1 ml INTRADERM ONE; +Dexamethasone IV 4 MG/ML VIAL 1 ml VIAL IV SLOW PU ONE; +Lactated Ringers 1000 ml BAG 1,000 ML IV SCH; -oxyCODONE/Acetamin 5/325 MG* TAB PO ONE
[2019-12-27] MEDS ORDERED: ceFAZolin 2 GM PREMIX 2 GM/50 ML BAG ONE (08:54)
[2019-12-27] MEDS ORDERED: Dexamethasone IV 4 MG/ML VIAL 1 ml VIAL ONE (08:54)
[2019-12-27] MEDS ORDERED: Midazolam 5 mg/5 ml VIAL 1 mg/ml 5 ml VIAL (5 mg) ONE (10:13)
[2019-12-27] MEDS ORDERED: fentaNYL 250 mcg/5 ml 50 MCG/ML 5 ml VIAL (250 MCG) ONE (10:13)
[2019-12-27] MEDS ORDERED: Lidocaine 2% PF 5 ML VIAL ONE (10:54)
[2019-12-27] MEDS ORDERED: ROPIVACAINE 5 MG/ML 30 ML BTL (0.5%) ONE ×2 (10:54→11:14)
[2019-12-27] MEDS ORDERED: Naloxone 0.4 mg VIAL 0.4 mg/ml 1 ml VIAL IV PRN (12:09)
[2019-12-27] MEDS ORDERED: fentaNYL 100 mcg/2 ml 50 MCG/ML VIAL IV PRN (12:09)
[2019-12-27] MEDS ORDERED: Ondansetron 4 mg VIAL 2 MG/ML 2 ml VIAL IV PRN ×2 (12:09→13:58)
[2019-12-27] MEDS ORDERED: HYDROmorphone 1 MG/1 ML SYRINGE IV PRN (12:09)
[2019-12-27] MEDS ORDERED: oxyCODONE/Acetamin 5/325 mg TAB PO PRN (13:58)
[2019-12-27] MEDS ORDERED: diPHENhydraMINE IV 50 MG/ML 1 ml VIAL (BENADRYL) IV PRN (13:58)
[2019-12-27] MEDS ORDERED: Ondansetron ODT 4 mg TAB 4 MG TAB PO PRN (13:58)
[2019-12-27] MEDS ORDERED: Morphine 2 MG/ML SYRINGE IV PRN (13:58)
[2019-12-27] MEDS ORDERED: Lactulose 30 ml UDC PO PRN (13:58)
[2019-12-27] MEDS ORDERED: Magnesium Hydroxide LIQ 30 ML UDC PO PRN (13:58)
[2019-12-27] MEDS ORDERED: diPHENhydraMINE 25 mg TAB PO PRN (13:58)
[2019-12-27] MEDS: Lactated Ringers 1000 ml BAG 1,000 ML IV SCH (15:40)
[2019-12-27] MEDS: ceFAZolin 1 GM ADVAN 1 GM in NS 0.9% 50 ML 50 ML IVPB SCH (18:09)
[2019-12-27] MEDS: Magnesium Hydroxide LIQ 30 ML UDC PO SCH (21:29)
[2019-12-28] MEDS: ceFAZolin 1 GM ADVAN 1 GM in NS 0.9% 50 ML 50 ML IVPB SCH ×2 (01:46→10:26)
[2019-12-28] MEDS: Lactated Ringers 1000 ml BAG 1,000 ML IV SCH (01:46)
[2019-12-28 06:26] LABS: Hematocrit 35 % (42-52); Hemoglobin 12.5 g/dL (14.0-18.0); Mean Platelet Volume 9.1 fL (7.4-10.4); Platelet Count 160 10^3/uL (150-450)
[2019-12-28 06:41] LABS: EGFR African American 121.9 (>60); EGFR Non-African American 100.8 (>60); Potassium 3.7 mmol/L (3.5-5.0)
[2019-12-28] MEDS: Magnesium Hydroxide LIQ 30 ML UDC PO SCH (08:40)
[2019-12-28] MEDS ORDERED: Vitamin THERAPEUTIC TAB PO SCH (09:00)
[2019-12-28 11:25] VITALS: BP 119/67
== END 2019-12-28 13:40 | disposition home or self-care (01) ==
LOC: OR 08:22 → SSU 08:22
PROVIDERS: ADMIT Orthopaedic Surgery Adult Reconstructive Orthopaedic Surgery; ATTEND Orthopaedic Surgery Adult Reconstructive Orthopaedic Surgery

== ENCOUNTER 2022-12-06 09:40 | Inpatient (IN) ==
[2022-12-06 10:10] LABS: ABS Basophils 0.1 10^3/uL (0.0-0.1); ABS Eosinophils 0.2 10^3/uL (0.0-0.5); ABS Lymphocytes 1.1 10^3/uL (1.0-4.8); ABS Monocytes 0.6 10^3/uL (0.0-1.1); ABS Nucleated RBC 0.01 10^3/ul; Eosinophil % 2.9 %; Hematocrit 43.6 % (38-53); Hemoglobin 15.2 g/dL (13.2-16.3); Lymphocyte % 15.5 %; Mean Corpuscular Hemoglobin 31.7 pg (27-33); Mean Corpuscular Hgb Conc 34.8 g/dL (31-36); Mean Corpuscular Volume 91.2 fL (80-97); Mean Platelet Volume 9.5 fL (7.5-11.2); Nucleated Red Blood Cells % 0.2 /100 WBC (0.0-0.4); Platelet Count 237 10^3/uL (150-450); Red Blood Count 4.78 10^6/uL (4.06-5.63); Red Cell Distribution Width 13.2 % (12-17); White Blood Count 6.9 10^3/uL (3.6-10.2)
[2022-12-06 10:19] LABS: Activated Partial Thrombo Time 32.6 seconds (26.0-38.0); INR 1.18 (0.88-1.18)
[2022-12-06 10:23] LABS: Albumin 4.3 g/dL (3.2-5.2); Albumin/Globulin Ratio 1.4 (1-3); Calcium 9.4 mg/dL (8.6-10.3); Creatinine, Serum 0.89 mg/dL (0.67-1.17); HDL Cholesterol 41.8 mg/dL; Potassium 4.2 mmol/L (3.5-5.0); Total Bilirubin 0.4 mg/dL (0.2-1.0); Total Protein 7.3 g/dL (6.4-8.9); eGFR CKD-EPI 92.2 (>60)
[2022-12-06] MEDS ORDERED: Iohexol 350 (CONTRAST) 500 ML MDV IV ONE (11:25)
[2022-12-06 16:31] LABS: Urine Appearance Clear; Urine Bilirubin Negative (Negative); Urine Blood Negative (Negative); Urine Color Yellow; Urine Glucose Negative (Negative); Urine Ketones Negative (Negative); Urine Nitrite Negative (Negative); Urine Protein Negative (Negative); Urine Urobilinogen Negative (Negative)
[2022-12-06] MEDS: Heparin 5000 UNITS/ML 1 mL VIAL SUBCUT SCH (22:35)
[2022-12-07] MEDS: Heparin 5000 UNITS/ML 1 mL VIAL SUBCUT SCH ×3 (07:45→22:44)
[2022-12-08] MEDS: Heparin 5000 UNITS/ML 1 mL VIAL SUBCUT SCH ×3 (05:15→21:50)
[2022-12-09] MEDS: Heparin 5000 UNITS/ML 1 mL VIAL SUBCUT SCH ×3 (05:55→20:14)
[2022-12-09] MEDS: Polyethylene Glycol 3350 17 GM PACKET PO SCH (16:57)
[2022-12-09] MEDS ORDERED: Senna TAB 8.6 mg TAB PO SCH (21:00)
[2022-12-10] MEDS: Heparin 5000 UNITS/ML 1 mL VIAL SUBCUT SCH (06:20)
[2022-12-10] MEDS: Polyethylene Glycol 3350 17 GM PACKET PO SCH (09:58)
[2022-12-10 14:54] VITALS: BP 146/83
== END 2022-12-10 13:56 | disposition home or self-care (01) | DRG 66 ==
LOC: EDHOLD 09:40 → ED 09:40 → SUATTDRO 16:25 → OBSVTOIN 16:25 → MEDTELE 12-07 18:41
PROVIDERS: ADMIT Internal Medicine; ATTEND Internal Medicine